=== PATIENT | female | born 1965 | race Caucasian/White ===

== ENCOUNTER 2021-11-09 17:44 | Inpatient (IN) ==
[2021-11-09] MEDS ORDERED: Isovue-370 500 ML BOTTLE IVP ONE (18:16)
[2021-11-09 18:30] LABS: Basophils % 0.1 %; Hemoglobin 15.6 g/dL (11.5-15.4); Mean Platelet Volume 12.4 fL (9.4-12.4); Nucleated Red Blood Cells 0.1 /100 WBC (0)
[2021-11-09 18:31] LABS: Eosinophils % 0.1 %; Hematocrit 42.6 % (35.3-44.9); Immature Granulocytes % 6.1 % (0-4); Lymphocytes # 2.3 K/mcL (0.6-4.6); Lymphocytes % 6.3 %; Mean Corpuscular HGB Conc 36.6 g/dL (31.6-35.5); Mean Corpuscular Hemoglobin 35.1 pg (28.0-33.3); Mean Corpuscular Volume 95.7 fL (83.0-100.0); Monocytes % 8.1 %; Neutrophils # 29.2 K/mcL (1.6-8.9); Platelet Count 329 K/mcL (140-400); Red Blood Count 4.45 M/mcL (3.82-4.97); Red Cell Distribution Width 14.3 % (11.5-14.5); Segmented Neutrophils % 79.3 %
[2021-11-09 18:34] LABS: White Blood Count 36.8 K/mcL (4.3-11.1)
[2021-11-09 18:39] LABS: INR 1.6; Prothrombin Time 17.5 Seconds (9.4-12.1)
[2021-11-09 18:41] LABS: Activated Partial Thrombo Time 37.4 Seconds (26.0-36.0)
[2021-11-09 18:49] LABS: Alanine Aminotransferase 43 Units/L (7-52); Albumin 3.2 g/dL (3.5-5.7); Alkaline Phosphatase 177 Units/L (34-104); Aspartate Amino Transferase 85 Units/L (13-39); BUN/Creatinine Ratio 39 (6-26); Bilirubin,Total 5.7 mg/dL (0.3-1.0); Blood Urea Nitrogen 76 mg/dL (6-20); Calcium 10.5 mg/dL (8.6-10.3); Carbon Dioxide 24 mEq/L (23-29); Chloride 86 mEq/L (98-107); Glucose 138 mg/dL (70-105); Osmolality,Calculated 285 (280-300); Potassium 2.8 mEq/L (3.5-5.1); Sodium 125 mEq/L (136-145); Total Protein 7.7 g/dL (6.4-8.9); eGFR For African Americans 33 (> 60); eGFR For Non-African Americans 27 (> 60)
[2021-11-09 18:50] LABS: Albumin/Globulin Ratio 0.7 (1.1-2.2); Ethanol < 10 mg/dL (Less than 10); Globulin 4.5 g/dL (2.4-3.5)
[2021-11-09 18:59] LABS: Platelet Estimate Normal (Normal); Smudge Cells Present (Not Present); Toxic Granulation Present (Not Present)
[2021-11-09] MEDS ORDERED: 0.9 % Sodium Chloride 1,000 ML IV ONE (19:17)
[2021-11-09] MEDS ORDERED: cefTRIAXone 1,000 MG in Water for inj. (sterile) 10 ML IVP ONE (19:32)
[2021-11-09] MEDS ORDERED: cefTRIAXone 1,000 MG in 0.9 % Sodium Chloride Mini Bag 100 ML IVPB ONE (20:00)
[2021-11-09] MEDS ORDERED: cefTRIAXone 1,000 MG in 0.9 % Sodium Chloride Mini Bag 100 ML IVP ONE (20:00)
[2021-11-09 20:08] LABS: Bacteria,Urine Few per hpf (None-Few); Bilirubin,Urine Small (Negative); Blood,Urine Large (Negative); Clarity,Urine Turbid (Clear); Color,Urine Dark-Yellow (Yellow); Glucose,Urine (UA) Normal (Normal); Hyaline Casts,Urine Many per lpf (None Seen); Ketones,Urine Negative (Negative); Leukocyte Esterase,Urine Negative (Negative); Mucus,Urine Few per lpf (None-Few); Nitrite,Urine Negative (Negative); PH,Urine 5.5 pH Units (5.0-8.0); Protein,Urine Trace mg/dL (Neg-Trace); RBC,Urine 0-3 per hpf (0-3); Specific Gravity,Urine > 1.030 (1.010-1.025); Squamous Epithelial Cell,Urine Moderate per hpf (None-Few); Urobilinogen,Urine >=8.0 mg/dL (Normal)
[2021-11-09 21:38] LABS: Lipase 185 Units/L (11-82)
[2021-11-09] MEDS ORDERED: MetroNIDAZOLE 500 MG/100 ML 500 MG/100 ML BAG IVPB ONE (21:38)
[2021-11-09] MEDS ORDERED: Piperacillin/Tazobactam 3.375 GM in 0.9 % Sodium Chloride Mini Bag 100 ML IVPB ONE (21:44)
[2021-11-09] MEDS ORDERED: 0.9 % Sodium Chloride 1,000 ML IVC ONE (21:50)
[2021-11-09] MEDS ORDERED: Melatonin 3 MG TABLET PO PRN (22:03)
[2021-11-09] MEDS ORDERED: Acetaminophen 325 MG TABLET PO PRN (22:03)
[2021-11-09] MEDS ORDERED: Naloxone 0.4 MG/ML INJ IVP PRN (22:03)
[2021-11-09] MEDS ORDERED: *HR* Promethazine 25 MG/ML VIAL IM PRN (22:03)
[2021-11-09] MEDS ORDERED: *HR* HYDROcodone/Acet 5/325 mg TABLET PO PRN (22:03)
[2021-11-09] MEDS ORDERED: Ondansetron 4 MG/2 ML VIAL IVP PRN (22:03)
[2021-11-09] MEDS: Ringers Solution, Lactated 1,000 ML IVC SCH (22:06)
[2021-11-09] MEDS ORDERED: Ringers Solution, Lactated 1,000 ML IVC ONE (22:11)
[2021-11-09 23:50] LABS: Influenza A PCR Negative (Negative); Influenza B PCR Negative (Negative); Resp. Syncytial Virus PCR Negative (Negative)
[2021-11-09 23:57] LABS: SARS-CoV-2 by PCR (In House) Positive (Negative)
[2021-11-10] MEDS: *HR* Heparin 5,000 UNIT/ML VIAL SQ SCH ×4 (00:04→20:42)
[2021-11-10] MEDS: Vancomycin 1,500 MG/265 ML IV.SOLN IVPB SCH ×2 (00:04→21:45)
[2021-11-10] MEDS ORDERED: *HR* LORazepam 2 MG/ML VIAL IVP PRN ×3 (00:07)
[2021-11-10] MEDS ORDERED: PrednisoLONE Oral Soln 15 MG/5 ML UDC PO ONE (00:09)
[2021-11-10 01:48] LABS: Basophils % 0.1 %; Mean Platelet Volume 12.2 fL (9.4-12.4); Nucleated Red Blood Cells 0.1 /100 WBC (0)
[2021-11-10 01:49] LABS: Eosinophils # 0.1 K/mcL (0.0-0.6); Eosinophils % 0.2 %; Hematocrit 37.3 % (35.3-44.9); Hemoglobin 13.5 g/dL (11.5-15.4); Immature Granulocytes % 6.1 % (0-4); Lymphocytes # 2.3 K/mcL (0.6-4.6); Lymphocytes % 7.7 %; Mean Corpuscular HGB Conc 36.2 g/dL (31.6-35.5); Mean Corpuscular Hemoglobin 34.9 pg (28.0-33.3); Mean Corpuscular Volume 96.4 fL (83.0-100.0); Monocytes # 2.7 K/mcL (0.0-1.3); Monocytes % 9.1 %; Neutrophils # 22.9 K/mcL (1.6-8.9); Platelet Count 266 K/mcL (140-400); Red Blood Count 3.87 M/mcL (3.82-4.97); Red Cell Distribution Width 14.6 % (11.5-14.5); Segmented Neutrophils % 76.8 %; White Blood Count 29.8 K/mcL (4.3-11.1)
[2021-11-10 01:58] LABS: Fibrinogen 426 mg/dL (169-393); INR 1.6; Prothrombin Time 17.8 Seconds (9.4-12.1)
[2021-11-10 02:08] LABS: C-Reactive Protein 195 mg/L (Less than 10); Lactate Dehydrogenase 331 Units/L (140-271); Potassium 3.4 mEq/L (3.5-5.1)
[2021-11-10 02:12] LABS: Albumin 2.7 g/dL (3.5-5.7); Albumin/Globulin Ratio 0.8 (1.1-2.2); Bilirubin,Total 4.4 mg/dL (0.3-1.0); Calcium 9.1 mg/dL (8.6-10.3); Globulin 3.6 g/dL (2.4-3.5); Potassium 3.5 mEq/L (3.5-5.1); Total Protein 6.3 g/dL (6.4-8.9)
[2021-11-10 02:13] LABS: D-Dimer 2250 ng/mLFEU (0-500)
[2021-11-10 03:13] LABS: Platelet Estimate Normal (Normal); Toxic Granulation Present (Not Present)
[2021-11-10] MEDS: Ringers Solution, Lactated 1,000 ML IVC SCH ×3 (05:09→20:41)
[2021-11-10] MEDS: Dexamethasone Sodium Phos/PF 10 MG/ML VIAL IVP SCH (08:11)
[2021-11-10] MEDS: Piperacillin/Tazobactam 3.375 GM in 0.9 % Sodium Chloride Mini Bag 100 ML IVPB SCH ×3 (08:12→23:30)
[2021-11-10] MEDS ORDERED: *HR* FentaNYL (PF) 100 MCG/2 ML VIAL ONE (13:51)
[2021-11-10] MEDS ORDERED: Ondansetron 4 MG/2 ML VIAL ONE (13:51)
[2021-11-10] MEDS ORDERED: *HR* Rocuronium Bromide 50 MG/5 ML VIAL ONE (13:51)
[2021-11-10] MEDS ORDERED: *HR* Succinylcholine 200 MG/10 ML VIAL IVP ONE (13:51)
[2021-11-10] MEDS ORDERED: *HR* Propofol 200 MG/20 ML VIAL IVP ONE (13:51)
[2021-11-10] MEDS ORDERED: Lidocaine -MPF 2% 5 ML VIAL ONE (15:45)
[2021-11-10] MEDS ORDERED: Albuterol 2.5 MG/3 ML NEBULIZER ONE (16:23)
[2021-11-10] MEDS ORDERED: Albuterol 2.5 MG/3 ML NEBULIZER IH ONE (16:28)
[2021-11-10 17:04] LABS: Appearance of Pleural Fl Cloudy (Clear)
[2021-11-10 17:09] LABS: RBC,Pleural Fluid 2000 RBC/mcL
[2021-11-10 18:24] LABS: Basophils,Pleural Fluid 0 %; Eosinophils,Pleural Fluid 0 %
[2021-11-10 18:31] LABS: LDH,Pleural Fluid > 1200 Units/L (No Ref Range); Total Protein,Pleural Fluid 5.4 g/dL
[2021-11-10 21:45] LABS: Protein/Creatinine Ratio,Urine 0.29 mg/mg (0.00-0.20); Sodium, Urine 22.7 mEq/L
[2021-11-10] MEDS: 0.9 % Sodium Chloride 1,000 ML IVC SCH (23:30)
[2021-11-11 03:31] LABS: Hemoglobin 13.1 g/dL (11.5-15.4); Mean Corpuscular HGB Conc 35.4 g/dL (31.6-35.5); Mean Corpuscular Hemoglobin 35.2 pg (28.0-33.3); Mean Corpuscular Volume 99.5 fL (83.0-100.0); Platelet Count 216 K/mcL (140-400); Red Blood Count 3.72 M/mcL (3.82-4.97); Red Cell Distribution Width 15.4 % (11.5-14.5); White Blood Count 21.7 K/mcL (4.3-11.1)
[2021-11-11 03:57] LABS: Alanine Aminotransferase 32 Units/L (7-52); Albumin 2.6 g/dL (3.5-5.7); Albumin/Globulin Ratio 0.7 (1.1-2.2); Alkaline Phosphatase 226 Units/L (34-104); Aspartate Amino Transferase 73 Units/L (13-39); BUN/Creatinine Ratio 61 (6-26); Bilirubin,Total 3.7 mg/dL (0.3-1.0); Blood Urea Nitrogen 47 mg/dL (6-20); Calcium 9.5 mg/dL (8.6-10.3); Carbon Dioxide 20 mEq/L (23-29); Chloride 104 mEq/L (98-107); Globulin 3.6 g/dL (2.4-3.5); Glucose 165 mg/dL (70-105); Magnesium 2.1 mg/dL (1.6-2.6); Osmolality,Calculated 292 (280-300); Potassium 3.5 mEq/L (3.5-5.1); Sodium 133 mEq/L (136-145); Total Protein 6.2 g/dL (6.4-8.9); eGFR For African Americans > 60 (> 60); eGFR For Non-African Americans > 60 (> 60)
[2021-11-11 04:07] LABS: Lymphocytes # 0.4 K/mcL (0.6-4.6); Monocytes # 1.3 K/mcL (0.0-1.3); Platelet Estimate Normal (Normal)
[2021-11-11] MEDS: *HR* Heparin 5,000 UNIT/ML VIAL SQ SCH ×3 (05:47→21:02)
[2021-11-11] MEDS: Piperacillin/Tazobactam 3.375 GM in 0.9 % Sodium Chloride Mini Bag 100 ML IVPB SCH ×3 (08:41→23:34)
[2021-11-11] MEDS: 0.9 % Sodium Chloride 1,000 ML IVC SCH ×2 (08:42→12:23)
[2021-11-11] MEDS: Dexamethasone Sodium Phos/PF 10 MG/ML VIAL IVP SCH (08:42)
[2021-11-11] MEDS: Vancomycin 1,500 MG/265 ML IV.SOLN IVPB SCH (23:35)
[2021-11-12] MEDS: *HR* Heparin 5,000 UNIT/ML VIAL SQ SCH (05:51)
[2021-11-12] MEDS ORDERED: Ondansetron 4 MG/2 ML VIAL IVP PRN ×2 (07:44→16:02)
[2021-11-12] MEDS: Piperacillin/Tazobactam 3.375 GM in 0.9 % Sodium Chloride Mini Bag 100 ML IVPB SCH ×2 (08:34→15:59)
[2021-11-12] MEDS: Dexamethasone Sodium Phos/PF 10 MG/ML VIAL IVP SCH (08:38)
[2021-11-12 10:32] LABS: Hemoglobin 14.6 g/dL (11.5-15.4); Mean Corpuscular Hemoglobin 34.9 pg (28.0-33.3); Red Blood Count 4.18 M/mcL (3.82-4.97); Red Cell Distribution Width 15.9 % (11.5-14.5)
[2021-11-12 10:34] LABS: Hematocrit 42.3 % (35.3-44.9); Mean Corpuscular HGB Conc 34.5 g/dL (31.6-35.5); Mean Corpuscular Volume 101.2 fL (83.0-100.0); Mean Platelet Volume 11.5 fL (9.4-12.4); Platelet Count 243 K/mcL (140-400)
[2021-11-12 10:53] LABS: Alanine Aminotransferase 39 Units/L (7-52); Albumin 2.9 g/dL (3.5-5.7); Albumin/Globulin Ratio 0.7 (1.1-2.2); Alkaline Phosphatase 202 Units/L (34-104); Aspartate Amino Transferase 83 Units/L (13-39); Bilirubin,Direct 2.3 mg/dL (0.0-0.2); Bilirubin,Indirect 1.8 mg/dL (0.0-1.0); Bilirubin,Total 4.1 mg/dL (0.3-1.0); Blood Urea Nitrogen 36 mg/dL (6-20); Calcium 8.4 mg/dL (8.6-10.3); Carbon Dioxide 25 mEq/L (23-29); Chloride 106 mEq/L (98-107); Glucose 142 mg/dL (70-105); Osmolality,Calculated 299 (280-300); Potassium 3.4 mEq/L (3.5-5.1); Sodium 139 mEq/L (136-145); Total Protein 6.9 g/dL (6.4-8.9)
[2021-11-12] MEDS ORDERED: Vancomycin 1,250 MG/262.5 ML IV.SOLN IVPB SCH ×2 (11:00→23:00)
[2021-11-12 11:10] LABS: Platelet Estimate Normal (Normal)
[2021-11-12] MEDS ORDERED: *HR* Rocuronium Bromide 50 MG/5 ML VIAL ONE (11:22)
[2021-11-12] MEDS ORDERED: Lidocaine -MPF 2% 5 ML VIAL ONE (11:22)
[2021-11-12] MEDS ORDERED: *HR* Midazolam HCl 2 MG/2 ML VIAL ONE (11:22)
[2021-11-12] MEDS ORDERED: *HR* Succinylcholine 200 MG/10 ML VIAL IVP ONE (11:22)
[2021-11-12] MEDS ORDERED: *HR* FentaNYL (PF) 100 MCG/2 ML VIAL ONE ×2 (11:22→13:34)
[2021-11-12] MEDS ORDERED: Lidocaine HCL 4 ML Topical Solution (Laryng-O-Jet Kit Sterile Pak) TP ONE (11:22)
[2021-11-12] MEDS ORDERED: Ondansetron 4 MG/2 ML VIAL ONE (11:22)
[2021-11-12] MEDS ORDERED: *HR* Propofol 200 MG/20 ML VIAL IVP ONE (11:23)
[2021-11-12] MEDS ORDERED: *HR* Norepinephrine 4 MG/4 ML VIAL IVC ONE (11:33)
[2021-11-12] MEDS ORDERED: Albumin Human 5% 25.0 GM/500 ML IV.SOLN ONE (11:33)
[2021-11-12] MEDS ORDERED: *HR* Vasopressin 20 UNIT/ML VIAL ONE (11:33)
[2021-11-12 11:37] LABS: BUN/Creatinine Ratio 59 (6-26); eGFR For African Americans > 60 (> 60); eGFR For Non-African Americans > 60 (> 60)
[2021-11-12] MEDS: 0.9 % Sodium Chloride 1,000 ML IVC SCH (14:57)
[2021-11-12 14:59] LABS: ABG Base Excess -5 mEq/L (-2 to 3); ABG HCO3 24 mEq/L (21-27); ABG Oxygen Saturation 95 % (95-98); ABG PCO2 54 mmHg (35-45); ABG PH 7.25 pH Units (7.32-7.45); ABG PO2 92 mmHg (85-104); ABG TCO2 25 mEq/L (20-26)
[2021-11-12] MEDS ORDERED: Morphine Sulfate 2 MG/ML SYRINGE IVP ONE (15:37)
[2021-11-12] MEDS ORDERED: Melatonin 3 MG TABLET PO PRN (16:02)
[2021-11-12] MEDS ORDERED: Naloxone 0.4 MG/ML INJ IVP PRN (16:02)
[2021-11-12] MEDS ORDERED: *HR* HYDROcodone/Acet 5/325 mg TABLET PO PRN (16:02)
[2021-11-12] MEDS ORDERED: 0.9 % Sodium Chloride 1,000 ML IVC SCH (16:02)
[2021-11-12] MEDS ORDERED: *HR* LORazepam 2 MG/ML VIAL IVP PRN ×2 (16:02)
[2021-11-12] MEDS ORDERED: Artificial Tears SOLN 15 ML BOTTLE BOTH EYES PRN (16:19)
[2021-11-12] MEDS ORDERED: FentaNYL (PF) 1,000 MCG/100 ML IV.SOLN IVC SCH (16:30)
[2021-11-12] MEDS ORDERED: Norepinephrine 4 MG/254 ML IV.SOLN IVC SCH (16:30)
[2021-11-12] MEDS ORDERED: Furosemide 40 MG/4 ML VIAL ONE (17:06)
[2021-11-12 17:17] LABS: ABG Base Excess -3 mEq/L (-2 to 3); ABG Chloride 113 mEq/L (98-107); ABG Glucose 174 mg/dL (60-95); ABG HCO3 23 mEq/L (21-27); ABG Ionized Calcium 1.07 mmol/L (1.15-1.35); ABG Oxygen Saturation 98 % (95-98); ABG PCO2 39 mmHg (35-45); ABG PH 7.37 pH Units (7.32-7.45); ABG PO2 100 mmHg (85-104); ABG TCO2 24 mEq/L (20-26); Blood Gas Modality BiLevel
[2021-11-12] MEDS: Dexmedetomidine HCl 400 MCG/100 ML MLS IVC SCH ×2 (17:20→23:33)
[2021-11-12 18:34] LABS: Fluid Source for Albumin PLEURAL FLUID
[2021-11-12] MEDS: Gabapentin 300 MG CAPSULE PO SCH ×2 (18:50→20:19)
[2021-11-12] MEDS: Artificial Tears SOLN 15 ML BOTTLE BOTH EYES SCH (20:01)
[2021-11-12] MEDS: Chlorhexidine Rinse 15 ML MOUTHWASH MM SCH (20:18)
[2021-11-12] MEDS: Sennosides/Docusate Sodium TABLET PO SCH (20:18)
[2021-11-12] MEDS: Morphine Sulfate 2 MG/ML SYRINGE IVP PRN (20:35)
[2021-11-12 20:40] LABS: Fluid Source for Triglycerides PLEURAL FLUID
[2021-11-12] MEDS ORDERED: Latanoprost 2.5 ML BOTTLE BOTH EYES SCH (21:00)
[2021-11-12 21:22] LABS: Fluid Source for Bilirubin PLEURAL FLUID
[2021-11-12] MEDS: Latanoprost 2.5 ML BOTTLE BOTH EYES SCH (21:43)
[2021-11-12] MEDS ORDERED: Furosemide 40 MG/4 ML VIAL IVP ONE (22:42)
[2021-11-12] MEDS: *HR* LORazepam 2 MG/ML VIAL IVP PRN (23:00)
[2021-11-13] MEDS ORDERED: Acetaminophen IV 500 MG/50 ML BAG IVPB ONE (00:03)
[2021-11-13] MEDS: Artificial Tears SOLN 15 ML BOTTLE BOTH EYES SCH ×7 (00:05→23:07)
[2021-11-13] MEDS: Piperacillin/Tazobactam 3.375 GM in 0.9 % Sodium Chloride Mini Bag 100 ML IVPB SCH ×4 (00:06→23:06)
[2021-11-13] MEDS: Morphine Sulfate 2 MG/ML SYRINGE IVP PRN (00:30)
[2021-11-13 03:43] LABS: Basophils # 0.2 K/mcL (0.0-0.2); Basophils % 0.7 %; Immature Granulocytes % 4.1 % (0-4); Lymphocytes # 0.6 K/mcL (0.6-4.6); Lymphocytes % 2.9 %; Mean Corpuscular HGB Conc 33.5 g/dL (31.6-35.5); Mean Corpuscular Hemoglobin 34.6 pg (28.0-33.3); Mean Corpuscular Volume 103.4 fL (83.0-100.0); Mean Platelet Volume 11.4 fL (9.4-12.4); Monocytes # 1.1 K/mcL (0.0-1.3); Monocytes % 5.6 %; Neutrophils # 17.4 K/mcL (1.6-8.9); Platelet Count 159 K/mcL (140-400); Red Blood Count 3.58 M/mcL (3.82-4.97); Red Cell Distribution Width 16.3 % (11.5-14.5); Segmented Neutrophils % 86.7 %; White Blood Count 20.1 K/mcL (4.3-11.1)
[2021-11-13 03:44] LABS: Hemoglobin 12.4 g/dL (11.5-15.4)
[2021-11-13 04:05] LABS: BUN/Creatinine Ratio 48 (6-26); Blood Urea Nitrogen 45 mg/dL (6-20); Calcium 6.7 mg/dL (8.6-10.3); Carbon Dioxide 22 mEq/L (23-29); Chloride 112 mEq/L (98-107); Glucose 182 mg/dL (70-105); Osmolality,Calculated 312 (280-300); Potassium 4.2 mEq/L (3.5-5.1); Sodium 143 mEq/L (136-145); eGFR For African Americans > 60 (> 60); eGFR For Non-African Americans > 60 (> 60)
[2021-11-13 04:06] LABS: ABG Base Excess -2 mEq/L (-2 to 3); ABG HCO3 22 mEq/L (21-27); ABG Oxygen Saturation 93 % (95-98); ABG PCO2 38 mmHg (35-45); ABG PH 7.38 pH Units (7.32-7.45); ABG PO2 68 mmHg (85-104); ABG TCO2 24 mEq/L (20-26); Blood Gas Modality NIV; Blood Gas VT 500 cc
[2021-11-13] MEDS ORDERED: Furosemide 40 MG/4 ML VIAL IVP ONE (08:24)
[2021-11-13] MEDS: Dexmedetomidine HCl 400 MCG/100 ML MLS IVC SCH ×2 (08:25→22:08)
[2021-11-13] MEDS: Chlorhexidine Rinse 15 ML MOUTHWASH MM SCH ×2 (08:33→19:29)
[2021-11-13] MEDS: Pantoprazole 40 MG VIAL IVP SCH (08:34)
[2021-11-13] MEDS: Dexamethasone Sodium Phos/PF 10 MG/ML VIAL IVP SCH (08:35)
[2021-11-13 09:33] LABS: Triglycerides,Body Fluid 110 mg/dL
[2021-11-13 10:19] LABS: Magnesium 1.8 mg/dL (1.6-2.6); Phosphorous 3.4 mg/dL (2.7-4.5); Triglycerides 95 mg/dL (< 150)
[2021-11-13] MEDS: Gabapentin 300 MG CAPSULE PO SCH ×3 (12:02→19:45)
[2021-11-13] MEDS: Sennosides/Docusate Sodium TABLET PO SCH ×2 (12:02→19:45)
[2021-11-13] MEDS ORDERED: Lidocaine -MPF 1% 5 ML AMPUL INFILT ONE (13:53)
[2021-11-13] MEDS: *HR* Heparin 5,000 UNIT/ML VIAL SQ SCH (17:52)
[2021-11-13] MEDS: Latanoprost 2.5 ML BOTTLE BOTH EYES SCH (19:46)
[2021-11-13 21:04] LABS: VBG Ionized Calcium 0.79 mmol/L (1.15-1.35)
[2021-11-13 21:22] LABS: Calcium 6.1 mg/dL (8.6-10.3); Potassium 4.2 mEq/L (3.5-5.1)
[2021-11-13] MEDS: Calcium Gluconate 1gm/50mL 1 GM/50 ML BAG IVPB SCH ×2 (22:26→23:05)
[2021-11-14] MEDS: Morphine Sulfate 2 MG/ML SYRINGE IVP PRN ×3 (00:25→17:09)
[2021-11-14] MEDS: Artificial Tears SOLN 15 ML BOTTLE BOTH EYES SCH ×6 (03:24→23:07)
[2021-11-14 03:58] LABS: ABG Base Excess -2 mEq/L (-2 to 3); ABG HCO3 21 mEq/L (21-27); ABG Oxygen Saturation 91 % (95-98); ABG PCO2 32 mmHg (35-45); ABG PH 7.43 pH Units (7.32-7.45); ABG PO2 58 mmHg (85-104); ABG TCO2 22 mEq/L (20-26); Blood Gas VT 500 cc
[2021-11-14 04:03] LABS: Basophils # 0.1 K/mcL (0.0-0.2); Basophils % 0.4 %; Hematocrit 36.6 % (35.3-44.9); Hemoglobin 12.5 g/dL (11.5-15.4); Immature Granulocytes % 2.8 % (0-4); Lymphocytes # 0.9 K/mcL (0.6-4.6); Lymphocytes % 4.1 %; Mean Corpuscular HGB Conc 34.2 g/dL (31.6-35.5); Mean Corpuscular Hemoglobin 35.3 pg (28.0-33.3); Mean Corpuscular Volume 103.4 fL (83.0-100.0); Mean Platelet Volume 12.2 fL (9.4-12.4); Monocytes % 4.8 %; Neutrophils # 18.8 K/mcL (1.6-8.9); Platelet Count 138 K/mcL (140-400); Red Blood Count 3.54 M/mcL (3.82-4.97); Red Cell Distribution Width 16.8 % (11.5-14.5); Segmented Neutrophils % 87.9 %; White Blood Count 21.4 K/mcL (4.3-11.1)
[2021-11-14 04:07] LABS: VBG Ionized Calcium 0.89 mmol/L (1.15-1.35)
[2021-11-14 04:10] LABS: Albumin 2.5 g/dL (3.5-5.7); Albumin/Globulin Ratio 0.7 (1.1-2.2); Bilirubin,Direct 1.3 mg/dL (0.0-0.2); Bilirubin,Total 2.3 mg/dL (0.3-1.0); Calcium 6.4 mg/dL (8.6-10.3); Globulin 3.4 g/dL (2.4-3.5); Phosphorous 3.5 mg/dL (2.7-4.5); Potassium 4.5 mEq/L (3.5-5.1); Total Protein 5.9 g/dL (6.4-8.9)
[2021-11-14] MEDS ORDERED: Calcium Gluconate 1gm/50mL 1 GM/50 ML BAG IVPB ONE (04:43)
[2021-11-14] MEDS: Calcium Gluconate 1gm/50mL 1 GM/50 ML BAG IVPB SCH ×2 (04:54→05:56)
[2021-11-14] MEDS: *HR* Heparin 5,000 UNIT/ML VIAL SQ SCH ×2 (04:58→17:08)
[2021-11-14] MEDS: Sennosides/Docusate Sodium TABLET PO SCH ×3 (07:40→19:43)
[2021-11-14] MEDS: Gabapentin 300 MG CAPSULE PO SCH ×4 (07:40→19:43)
[2021-11-14] MEDS: Dexmedetomidine HCl 400 MCG/100 ML MLS IVC SCH ×3 (08:02→23:07)
[2021-11-14] MEDS: Chlorhexidine Rinse 15 ML MOUTHWASH MM SCH ×2 (08:03→19:25)
[2021-11-14] MEDS: Pantoprazole 40 MG VIAL IVP SCH (08:03)
[2021-11-14] MEDS: Dexamethasone Sodium Phos/PF 10 MG/ML VIAL IVP SCH (08:03)
[2021-11-14] MEDS: Piperacillin/Tazobactam 3.375 GM in 0.9 % Sodium Chloride Mini Bag 100 ML IVPB SCH ×3 (08:04→23:07)
[2021-11-14 12:53] LABS: VBG Ionized Calcium 0.94 mmol/L (1.15-1.35)
[2021-11-14 13:05] LABS: Calcium 6.8 mg/dL (8.6-10.3); Potassium 4.5 mEq/L (3.5-5.1)
[2021-11-14 14:37] LABS: Magnesium 2.2 mg/dL (1.6-2.6); Phosphorous 3.4 mg/dL (2.7-4.5)
[2021-11-14] MEDS: Latanoprost 2.5 ML BOTTLE BOTH EYES SCH (19:26)
[2021-11-15] MEDS: Morphine Sulfate 2 MG/ML SYRINGE IVP PRN (02:54)
[2021-11-15] MEDS: Artificial Tears SOLN 15 ML BOTTLE BOTH EYES SCH ×5 (03:03→19:55)
[2021-11-15 04:01] LABS: VBG Ionized Calcium 0.98 mmol/L (1.15-1.35)
[2021-11-15 04:05] LABS: Mean Corpuscular Volume 104.7 fL (83.0-100.0); Red Cell Distribution Width 17.1 % (11.5-14.5)
[2021-11-15 04:06] LABS: Hemoglobin 12.6 g/dL (11.5-15.4); Immature Platelets 8.8 % (1.1-6.1); Mean Corpuscular HGB Conc 33.2 g/dL (31.6-35.5); Mean Corpuscular Hemoglobin 34.7 pg (28.0-33.3); Mean Platelet Volume 11.8 fL (9.4-12.4); Platelet Count 117 K/mcL (140-400); Red Blood Count 3.63 M/mcL (3.82-4.97); White Blood Count 18.5 K/mcL (4.3-11.1)
[2021-11-15] MEDS: Dexmedetomidine HCl 400 MCG/100 ML MLS IVC SCH ×5 (04:12→22:08)
[2021-11-15 04:17] LABS: Albumin 2.4 g/dL (3.5-5.7); Albumin/Globulin Ratio 0.7 (1.1-2.2); Bilirubin,Direct 1.1 mg/dL (0.0-0.2); Bilirubin,Indirect 0.8 mg/dL (0.0-1.0); Bilirubin,Total 1.9 mg/dL (0.3-1.0); Calcium 6.9 mg/dL (8.6-10.3); Globulin 3.6 g/dL (2.4-3.5); Magnesium 2.3 mg/dL (1.6-2.6); Phosphorous 4.2 mg/dL (2.7-4.5); Potassium 4.9 mEq/L (3.5-5.1)
[2021-11-15 04:43] LABS: Folate 7.7 ng/mL (3.0-16.0)
[2021-11-15] MEDS: *HR* Heparin 5,000 UNIT/ML VIAL SQ SCH ×2 (05:01→17:41)
[2021-11-15 06:15] LABS: Lymphocytes # 1.3 K/mcL (0.6-4.6); Monocytes # 0.4 K/mcL (0.0-1.3); Neutrophils # 16.8 K/mcL (1.6-8.9); Toxic Granulation Present (Not Present)
[2021-11-15] MEDS: Chlorhexidine Rinse 15 ML MOUTHWASH MM SCH ×2 (08:10→19:55)
[2021-11-15] MEDS: Dexamethasone Sodium Phos/PF 10 MG/ML VIAL IVP SCH (08:10)
[2021-11-15] MEDS: Gabapentin 300 MG CAPSULE PO SCH ×3 (08:11→19:55)
[2021-11-15] MEDS: Piperacillin/Tazobactam 3.375 GM in 0.9 % Sodium Chloride Mini Bag 100 ML IVPB SCH ×2 (08:11→17:40)
[2021-11-15] MEDS: Pantoprazole 40 MG VIAL IVP SCH (08:11)
[2021-11-15] MEDS: Sennosides/Docusate Sodium TABLET PO SCH ×2 (08:12→19:55)
[2021-11-15 08:30] LABS: Platelet Estimate Slight Decrease (Normal)
[2021-11-15] MEDS: Latanoprost 2.5 ML BOTTLE BOTH EYES SCH (19:55)
[2021-11-15] MEDS: *HR* LORazepam 2 MG/ML VIAL IVP PRN (22:30)
[2021-11-16] MEDS: Piperacillin/Tazobactam 3.375 GM in 0.9 % Sodium Chloride Mini Bag 100 ML IVPB SCH ×3 (00:18→14:58)
[2021-11-16] MEDS: Artificial Tears SOLN 15 ML BOTTLE BOTH EYES SCH ×6 (00:19→19:40)
[2021-11-16] MEDS: Dexmedetomidine HCl 400 MCG/100 ML MLS IVC SCH ×4 (02:48→19:41)
[2021-11-16 04:14] LABS: VBG Ionized Calcium 1.13 mmol/L (1.15-1.35)
[2021-11-16 04:16] LABS: Hemoglobin 13.1 g/dL (11.5-15.4)
[2021-11-16 04:18] LABS: Basophils # 0.1 K/mcL (0.0-0.2); Basophils % 0.3 %; Hematocrit 40.4 % (35.3-44.9); Immature Granulocytes % 1.3 % (0-4); Immature Platelets 10.3 % (1.1-6.1); Lymphocytes # 0.8 K/mcL (0.6-4.6); Mean Corpuscular HGB Conc 32.4 g/dL (31.6-35.5); Mean Corpuscular Hemoglobin 34.3 pg (28.0-33.3); Mean Corpuscular Volume 105.8 fL (83.0-100.0); Mean Platelet Volume 11.6 fL (9.4-12.4); Monocytes # 0.6 K/mcL (0.0-1.3); Monocytes % 3.6 %; Platelet Count 101 K/mcL (140-400); Red Blood Count 3.82 M/mcL (3.82-4.97); Red Cell Distribution Width 17.2 % (11.5-14.5); Segmented Neutrophils % 89.8 %
[2021-11-16 04:19] LABS: Neutrophils # 14.4 K/mcL (1.6-8.9)
[2021-11-16] MEDS: *HR* Heparin 5,000 UNIT/ML VIAL SQ SCH ×2 (04:20→16:38)
[2021-11-16 04:36] LABS: INR 1.3; Prothrombin Time 14.9 Seconds (9.4-12.1)
[2021-11-16 04:42] LABS: Albumin 2.5 g/dL (3.5-5.7); Albumin/Globulin Ratio 0.7 (1.1-2.2); Bilirubin,Direct 0.9 mg/dL (0.0-0.2); Bilirubin,Indirect 0.9 mg/dL (0.0-1.0); Bilirubin,Total 1.8 mg/dL (0.3-1.0); Globulin 3.8 g/dL (2.4-3.5); Magnesium 2.9 mg/dL (1.6-2.6); Phosphorous 4.9 mg/dL (2.7-4.5); Potassium 5.6 mEq/L (3.5-5.1); Total Protein 6.3 g/dL (6.4-8.9)
[2021-11-16 04:43] LABS: Large Platelets Present (Not Present); Platelet Estimate Decreased (Normal)
[2021-11-16] MEDS: Pantoprazole 40 MG VIAL IVP SCH (08:00)
[2021-11-16] MEDS: Chlorhexidine Rinse 15 ML MOUTHWASH MM SCH ×2 (08:00→19:40)
[2021-11-16] MEDS: Dexamethasone Sodium Phos/PF 10 MG/ML VIAL IVP SCH (08:04)
[2021-11-16] MEDS: Gabapentin 300 MG CAPSULE PO SCH (08:05)
[2021-11-16] MEDS: Sennosides/Docusate Sodium TABLET PO SCH ×2 (08:05→19:40)
[2021-11-16] MEDS: D5% in Water 1,000 ML IVC SCH ×2 (09:30→22:14)
[2021-11-16] MEDS ORDERED: *HR* LORazepam 2 MG/ML VIAL IVP PRN (12:03)
[2021-11-16] MEDS ORDERED: D10% in Water 500 ML IVC PRN (12:15)
[2021-11-16] MEDS ORDERED: Clinimix 5%-20% SOLUTION 2,000 ML with MVI, adult with vitamin K 10 ML, Sodium Phosph... IVC SCH (17:00)
[2021-11-16] MEDS: Morphine Sulfate 2 MG/ML SYRINGE IVP PRN (17:11)
[2021-11-16] MEDS: Latanoprost 2.5 ML BOTTLE BOTH EYES SCH (19:40)
[2021-11-17] MEDS: Dexmedetomidine HCl 400 MCG/100 ML MLS IVC SCH ×4 (00:26→14:40)
[2021-11-17] MEDS: Artificial Tears SOLN 15 ML BOTTLE BOTH EYES SCH ×6 (00:27→20:11)
[2021-11-17] MEDS: Piperacillin/Tazobactam 3.375 GM in 0.9 % Sodium Chloride Mini Bag 100 ML IVPB SCH ×3 (00:27→16:07)
[2021-11-17 03:54] LABS: Basophils % 0.3 %; Immature Granulocytes % 0.9 % (0-4)
[2021-11-17 03:56] LABS: Basophils # 0.1 K/mcL (0.0-0.2); Eosinophils % 0.2 %; Hematocrit 41.3 % (35.3-44.9); Hemoglobin 13.4 g/dL (11.5-15.4); Immature Platelets 11.3 % (1.1-6.1); Lymphocytes # 0.9 K/mcL (0.6-4.6); Lymphocytes % 4.9 %; Mean Corpuscular HGB Conc 32.4 g/dL (31.6-35.5); Mean Corpuscular Hemoglobin 34.7 pg (28.0-33.3); Mean Platelet Volume 12.5 fL (9.4-12.4); Monocytes # 0.6 K/mcL (0.0-1.3); Monocytes % 3.3 %; Neutrophils # 16.2 K/mcL (1.6-8.9); Platelet Count 85 K/mcL (140-400); Red Blood Count 3.86 M/mcL (3.82-4.97); Red Cell Distribution Width 16.7 % (11.5-14.5); Segmented Neutrophils % 90.4 %; White Blood Count 17.9 K/mcL (4.3-11.1)
[2021-11-17 04:10] LABS: VBG Ionized Calcium 1.23 mmol/L (1.15-1.35)
[2021-11-17 04:11] LABS: Albumin 2.5 g/dL (3.5-5.7); Albumin/Globulin Ratio 0.6 (1.1-2.2); Bilirubin,Direct 0.8 mg/dL (0.0-0.2); Bilirubin,Indirect 0.9 mg/dL (0.0-1.0); Bilirubin,Total 1.7 mg/dL (0.3-1.0); Calcium 8.7 mg/dL (8.6-10.3); Globulin 3.9 g/dL (2.4-3.5); Magnesium 2.7 mg/dL (1.6-2.6); Phosphorous 4.7 mg/dL (2.7-4.5); Potassium 5.2 mEq/L (3.5-5.1); Total Protein 6.4 g/dL (6.4-8.9)
[2021-11-17] MEDS: *HR* Heparin 5,000 UNIT/ML VIAL SQ SCH ×2 (04:33→17:20)
[2021-11-17] MEDS: Pantoprazole 40 MG VIAL IVP SCH (08:46)
[2021-11-17] MEDS: Chlorhexidine Rinse 15 ML MOUTHWASH MM SCH ×2 (08:47→20:11)
[2021-11-17] MEDS: Dexamethasone Sodium Phos/PF 10 MG/ML VIAL IVP SCH (08:47)
[2021-11-17] MEDS: Sennosides/Docusate Sodium TABLET PO SCH ×2 (08:48→20:11)
[2021-11-17] MEDS ORDERED: Dextrose Gel 15 GM/37.5 ML TUBE PO PRN ×2 (10:25)
[2021-11-17] MEDS ORDERED: D5% in Water 1,000 ML IVC PRN (10:25)
[2021-11-17 10:39] LABS: ABG Base Excess -4 mEq/L (-2 to 3); ABG HCO3 17 mEq/L (21-27); ABG Oxygen Saturation 86 % (95-98); ABG PCO2 23 mmHg (35-45); ABG PH 7.48 pH Units (7.32-7.45); ABG PO2 46 mmHg (85-104); ABG TCO2 18 mEq/L (20-26)
[2021-11-17] MEDS: D5% in Water 1,000 ML IVC SCH (11:45)
[2021-11-17] MEDS: Insulin LISPRO 300 UNITS/3 ML VIAL SUBQ SCH ×3 (12:41→20:41)
[2021-11-17] MEDS ORDERED: Artificial Tears SOLN 15 ML BOTTLE BOTH EYES PRN (13:17)
[2021-11-17] MEDS: FentaNYL (PF) 1,000 MCG/100 ML IV.SOLN IVC SCH ×2 (13:41→21:23)
[2021-11-17] MEDS ORDERED: Artificial Tears SOLN 15 ML BOTTLE BOTH EYES SCH (16:00)
[2021-11-17] MEDS ORDERED: *HR* Etomidate 20 MG/10 ML AMPUL IVP ONE (16:05)
[2021-11-17] MEDS ORDERED: *HR* Midazolam HCl 5 MG/5 ML VIAL IVP ONE (16:05)
[2021-11-17] MEDS ORDERED: Clinimix 5%-20% SOLUTION 2,000 ML with MVI, adult with vitamin K 10 ML, Sodium Phosph... IVC SCH (17:00)
[2021-11-17] MEDS ORDERED: Clinimix 5%-20% SOLUTION 2,000 ML, Parenteral Amino Acid 10% 0 ML with MVI, adult with... IVC SCH (17:00)
[2021-11-17] MEDS ORDERED: Fat Emulsion 250 ML IVPB SCH (17:00)
[2021-11-17 17:05] LABS: ABG Base Excess -7 mEq/L (-2 to 3); ABG HCO3 20 mEq/L (21-27); ABG Oxygen Saturation 98 % (95-98); ABG PCO2 41 mmHg (35-45); ABG PH 7.28 pH Units (7.32-7.45); ABG PO2 113 mmHg (85-104); ABG TCO2 21 mEq/L (20-26); Blood Gas VT 420 cc
[2021-11-17] MEDS: Latanoprost 2.5 ML BOTTLE BOTH EYES SCH (20:13)
[2021-11-17] MEDS ORDERED: Chlorhexidine Rinse 15 ML MOUTHWASH MM SCH (21:00)
[2021-11-18] MEDS: Insulin LISPRO 300 UNITS/3 ML VIAL SUBQ SCH ×6 (00:07→21:43)
[2021-11-18] MEDS: Artificial Tears SOLN 15 ML BOTTLE BOTH EYES SCH ×6 (00:07→21:01)
[2021-11-18] MEDS: Piperacillin/Tazobactam 3.375 GM in 0.9 % Sodium Chloride Mini Bag 100 ML IVPB SCH ×3 (00:11→15:06)
[2021-11-18] MEDS: D5% in Water 1,000 ML IVC SCH ×2 (01:37→14:11)
[2021-11-18 04:17] LABS: Basophils % 0.3 %; Immature Granulocytes % 0.9 % (0-4)
[2021-11-18 04:19] LABS: Basophils # 0.1 K/mcL (0.0-0.2); Eosinophils % 0.1 %; Hematocrit 38.1 % (35.3-44.9); Hemoglobin 11.8 g/dL (11.5-15.4); Lymphocytes # 0.8 K/mcL (0.6-4.6); Lymphocytes % 3.6 %; Mean Corpuscular Volume 109.8 fL (83.0-100.0); Monocytes # 0.9 K/mcL (0.0-1.3); Monocytes % 4.1 %; Red Blood Count 3.47 M/mcL (3.82-4.97); Red Cell Distribution Width 16.6 % (11.5-14.5); White Blood Count 22.4 K/mcL (4.3-11.1)
[2021-11-18 04:20] LABS: Neutrophils # 20.4 K/mcL (1.6-8.9); Platelet Count 67 K/mcL (140-400)
[2021-11-18 04:34] LABS: VBG Ionized Calcium 1.31 mmol/L (1.15-1.35)
[2021-11-18 04:34] LABS: Albumin 2.3 g/dL (3.5-5.7); Albumin/Globulin Ratio 0.7 (1.1-2.2); Bilirubin,Indirect 0.6 mg/dL (0.0-1.0); Bilirubin,Total 1.6 mg/dL (0.3-1.0); Calcium 8.9 mg/dL (8.6-10.3); Globulin 3.4 g/dL (2.4-3.5); Magnesium 2.5 mg/dL (1.6-2.6); Phosphorous 6.1 mg/dL (2.7-4.5); Total Protein 5.7 g/dL (6.4-8.9)
[2021-11-18 04:40] LABS: ABG Base Excess -6 mEq/L (-2 to 3); ABG HCO3 21 mEq/L (21-27); ABG Oxygen Saturation 100 % (95-98); ABG PCO2 43 mmHg (35-45); ABG PH 7.29 pH Units (7.32-7.45); ABG PO2 229 mmHg (85-104); ABG TCO2 22 mEq/L (20-26); Blood Gas Modality AF; Blood Gas VT 420 cc
[2021-11-18 04:42] LABS: Macrocytosis Present (Not Present)
[2021-11-18 04:43] LABS: Platelet Estimate Decreased (Normal); Toxic Granulation Present (Not Present)
[2021-11-18] MEDS: FentaNYL (PF) 1,000 MCG/100 ML IV.SOLN IVC SCH ×4 (05:19→20:50)
[2021-11-18] MEDS: *HR* Heparin 5,000 UNIT/ML VIAL SQ SCH ×2 (05:47→17:39)
[2021-11-18] MEDS: Sennosides/Docusate Sodium TABLET PO SCH ×2 (08:17→21:03)
[2021-11-18] MEDS: Pantoprazole 40 MG VIAL IVP SCH ×2 (08:18→21:02)
[2021-11-18] MEDS: Dexamethasone Sodium Phos/PF 10 MG/ML VIAL IVP SCH (08:18)
[2021-11-18] MEDS: Chlorhexidine Rinse 15 ML MOUTHWASH MM SCH ×2 (08:18→21:01)
[2021-11-18] MEDS ORDERED: Clinimix 5%-20% SOLUTION 2,000 ML with MVI, adult with vitamin K 10 ML IVC SCH (17:00)
[2021-11-18] MEDS: Latanoprost 2.5 ML BOTTLE BOTH EYES SCH (21:43)
[2021-11-19] MEDS: Artificial Tears SOLN 15 ML BOTTLE BOTH EYES SCH ×7 (01:12→23:42)
[2021-11-19] MEDS: Piperacillin/Tazobactam 3.375 GM in 0.9 % Sodium Chloride Mini Bag 100 ML IVPB SCH ×4 (01:13→23:40)
[2021-11-19] MEDS: Insulin LISPRO 300 UNITS/3 ML VIAL SUBQ SCH ×7 (01:40→23:52)
[2021-11-19] MEDS: FentaNYL (PF) 1,000 MCG/100 ML IV.SOLN IVC SCH ×4 (02:38→18:40)
[2021-11-19 03:30] LABS: VBG Ionized Calcium 1.21 mmol/L (1.15-1.35)
[2021-11-19 04:33] LABS: ABG Base Excess -10 mEq/L (-2 to 3); ABG HCO3 19 mEq/L (21-27); ABG Oxygen Saturation 97 % (95-98); ABG PCO2 48 mmHg (35-45); ABG PO2 116 mmHg (85-104); ABG TCO2 20 mEq/L (20-26); Blood Gas VT 420 cc
[2021-11-19] MEDS: D5% in Water 1,000 ML IVC SCH (04:33)
[2021-11-19 05:00] LABS: Albumin 2.4 g/dL (3.5-5.7); Albumin/Globulin Ratio 0.7 (1.1-2.2); Bilirubin,Indirect 0.7 mg/dL (0.0-1.0); Bilirubin,Total 1.7 mg/dL (0.3-1.0); Calcium 9.1 mg/dL (8.6-10.3); Globulin 3.3 g/dL (2.4-3.5); Magnesium 2.3 mg/dL (1.6-2.6); Phosphorous 6.4 mg/dL (2.7-4.5); Potassium 5.1 mEq/L (3.5-5.1); Total Protein 5.7 g/dL (6.4-8.9)
[2021-11-19] MEDS: *HR* Heparin 5,000 UNIT/ML VIAL SQ SCH (05:32)
[2021-11-19 06:26] LABS: Red Cell Distribution Width 16.3 % (11.5-14.5)
[2021-11-19 06:28] LABS: Hematocrit 38.2 % (35.3-44.9); Hemoglobin 11.4 g/dL (11.5-15.4); Mean Corpuscular HGB Conc 29.8 g/dL (31.6-35.5); Mean Corpuscular Hemoglobin 34.2 pg (28.0-33.3); Mean Corpuscular Volume 114.7 fL (83.0-100.0); Nucleated Red Blood Cells 0.1 /100 WBC (0); Red Blood Count 3.33 M/mcL (3.82-4.97)
[2021-11-19 07:10] LABS: Platelet Count 59 K/mcL (140-400)
[2021-11-19 07:11] LABS: Lymphocytes # 1.6 K/mcL (0.6-4.6); Monocytes # 2.2 K/mcL (0.0-1.3); Neutrophils # 22.7 K/mcL (1.6-8.9); Platelet Estimate Decreased (Normal)
[2021-11-19] MEDS: Pantoprazole 40 MG VIAL IVP SCH ×2 (08:48→20:21)
[2021-11-19] MEDS: Chlorhexidine Rinse 15 ML MOUTHWASH MM SCH ×2 (08:48→20:21)
[2021-11-19] MEDS: Dexamethasone Sodium Phos/PF 10 MG/ML VIAL IVP SCH (08:48)
[2021-11-19] MEDS: Sennosides/Docusate Sodium TABLET PO SCH ×2 (08:49→20:23)
[2021-11-19] MEDS: Famotidine 20 MG/2 ML VIAL IVP SCH ×2 (11:28→16:54)
[2021-11-19] MEDS ORDERED: Vancomycin 1,250 MG/262.5 ML IV.SOLN IVPB ONE (12:00)
[2021-11-19] MEDS ORDERED: Clinimix 5%-20% SOLUTION 2,000 ML with MVI, adult with vitamin K 10 ML, Sodium Acetat... IVC SCH (17:00)
[2021-11-19] MEDS: Latanoprost 2.5 ML BOTTLE BOTH EYES SCH (20:41)
[2021-11-20] MEDS: FentaNYL (PF) 1,000 MCG/100 ML IV.SOLN IVC SCH ×4 (00:34→18:55)
[2021-11-20 02:55] LABS: VBG Ionized Calcium 1.46 mmol/L (1.15-1.35)
[2021-11-20 03:04] LABS: Nucleated Red Blood Cells 0.1 /100 WBC (0); Red Cell Distribution Width 15.9 % (11.5-14.5)
[2021-11-20 03:05] LABS: Hematocrit 36.6 % (35.3-44.9); Hemoglobin 11.1 g/dL (11.5-15.4); Immature Platelets 20.8 % (1.1-6.1); Mean Corpuscular HGB Conc 30.3 g/dL (31.6-35.5); Mean Corpuscular Hemoglobin 35.5 pg (28.0-33.3); Mean Corpuscular Volume 116.9 fL (83.0-100.0); Mean Platelet Volume 13.3 fL (9.4-12.4); Red Blood Count 3.13 M/mcL (3.82-4.97); White Blood Count 27.8 K/mcL (4.3-11.1)
[2021-11-20 03:14] LABS: Albumin 2.3 g/dL (3.5-5.7); Albumin/Globulin Ratio 0.7 (1.1-2.2); Bilirubin,Direct 1.3 mg/dL (0.0-0.2); Bilirubin,Indirect 0.7 mg/dL (0.0-1.0); Calcium 9.8 mg/dL (8.6-10.3); Globulin 3.3 g/dL (2.4-3.5); Magnesium 2.2 mg/dL (1.6-2.6); Phosphorous 6.8 mg/dL (2.7-4.5); Platelet Count 60 K/mcL (140-400); Potassium 5.2 mEq/L (3.5-5.1); Total Protein 5.6 g/dL (6.4-8.9)
[2021-11-20] MEDS: Dexmedetomidine HCl 400 MCG/100 ML MLS IVC SCH (03:56)
[2021-11-20] MEDS: Artificial Tears SOLN 15 ML BOTTLE BOTH EYES SCH ×6 (03:56→23:24)
[2021-11-20] MEDS: Insulin LISPRO 300 UNITS/3 ML VIAL SUBQ SCH ×6 (03:57→23:40)
[2021-11-20 04:06] LABS: Lymphocytes # 1.1 K/mcL (0.6-4.6); Monocytes # 1.4 K/mcL (0.0-1.3); Neutrophils # 25.3 K/mcL (1.6-8.9)
[2021-11-20 04:07] LABS: Platelet Estimate Decreased (Normal); Reactive Lymphocytes Present (Not Present)
[2021-11-20 05:02] LABS: ABG Base Excess -12 mEq/L (-2 to 3); ABG HCO3 20 mEq/L (21-27); ABG Oxygen Saturation 99 % (95-98); ABG PCO2 71 mmHg (35-45); ABG PH 7.05 pH Units (7.32-7.45); ABG PO2 174 mmHg (85-104); ABG TCO2 22 mEq/L (20-26); Blood Gas VT 420 cc
[2021-11-20] MEDS: Famotidine 20 MG/2 ML VIAL IVP SCH (05:07)
[2021-11-20] MEDS: Chlorhexidine Rinse 15 ML MOUTHWASH MM SCH ×2 (08:13→19:53)
[2021-11-20] MEDS: Pantoprazole 40 MG VIAL IVP SCH ×2 (08:13→19:53)
[2021-11-20] MEDS: Dexamethasone Sodium Phos/PF 10 MG/ML VIAL IVP SCH (08:13)
[2021-11-20] MEDS: Piperacillin/Tazobactam 3.375 GM in 0.9 % Sodium Chloride Mini Bag 100 ML IVPB SCH ×3 (08:14→23:24)
[2021-11-20] MEDS: Sennosides/Docusate Sodium TABLET PO SCH ×2 (08:14→19:55)
[2021-11-20] MEDS ORDERED: Insulin DETEMIR 100 UNIT/ML X5UNITS SUBQ ONE (09:45)
[2021-11-20 10:11] LABS: ABG Base Excess -7 mEq/L (-2 to 3); ABG HCO3 21 mEq/L (21-27); ABG Oxygen Saturation 99 % (95-98); ABG PCO2 53 mmHg (35-45); ABG PH 7.21 pH Units (7.32-7.45); ABG PO2 196 mmHg (85-104); ABG TCO2 23 mEq/L (20-26); Blood Gas VT 420 cc
[2021-11-20] MEDS ORDERED: Clinimix 5%-20% SOLUTION 2,000 ML with MVI, adult with vitamin K 10 ML, Sodium Acetat... IVC SCH (17:00)
[2021-11-20] MEDS: Latanoprost 2.5 ML BOTTLE BOTH EYES SCH (20:05)
[2021-11-20] MEDS ORDERED: Insulin DETEMIR 100 UNIT/ML X5UNITS SUBQ SCH (21:00)
[2021-11-21] MEDS: Dexmedetomidine HCl 400 MCG/100 ML MLS IVC SCH ×2 (00:54→22:34)
[2021-11-21] MEDS: FentaNYL (PF) 1,000 MCG/100 ML IV.SOLN IVC SCH ×4 (01:32→21:40)
[2021-11-21] MEDS: Artificial Tears SOLN 15 ML BOTTLE BOTH EYES SCH ×6 (03:56→23:44)
[2021-11-21] MEDS: Insulin LISPRO 300 UNITS/3 ML VIAL SUBQ SCH ×6 (03:56→23:44)
[2021-11-21 04:30] LABS: Hemoglobin 11.1 g/dL (11.5-15.4); Immature Granulocytes % 1.8 % (0-4); Mean Platelet Volume 13.9 fL (9.4-12.4)
[2021-11-21 04:32] LABS: VBG Ionized Calcium 1.55 mmol/L (1.15-1.35)
[2021-11-21 04:32] LABS: Basophils # 0.1 K/mcL (0.0-0.2); Basophils % 0.3 %; Eosinophils % 0.1 %; Hematocrit 36.1 % (35.3-44.9); Immature Platelets 19.8 % (1.1-6.1); Lymphocytes # 0.5 K/mcL (0.6-4.6); Lymphocytes % 2.3 %; Mean Corpuscular HGB Conc 30.7 g/dL (31.6-35.5); Mean Corpuscular Hemoglobin 34.5 pg (28.0-33.3); Mean Corpuscular Volume 112.1 fL (83.0-100.0); Monocytes # 1.7 K/mcL (0.0-1.3); Nucleated Red Blood Cells 0.1 /100 WBC (0); Red Blood Count 3.22 M/mcL (3.82-4.97); Red Cell Distribution Width 15.9 % (11.5-14.5); Segmented Neutrophils % 87.5 %; White Blood Count 21.7 K/mcL (4.3-11.1)
[2021-11-21 04:32] LABS: ABG Base Excess -5 mEq/L (-2 to 3); ABG HCO3 22 mEq/L (21-27); ABG Oxygen Saturation 96 % (95-98); ABG PCO2 49 mmHg (35-45); ABG PH 7.26 pH Units (7.32-7.45); ABG PO2 96 mmHg (85-104); ABG TCO2 23 mEq/L (20-26); Blood Gas VT 420 cc
[2021-11-21 04:33] LABS: Platelet Count 62 K/mcL (140-400)
[2021-11-21 04:45] LABS: Platelet Estimate Decreased (Normal); Poikilocytosis 1+ (Not Present); Target Cells 1+ (Not Present)
[2021-11-21 04:50] LABS: Albumin 2.2 g/dL (3.5-5.7); Albumin/Globulin Ratio 0.7 (1.1-2.2); Bilirubin,Direct 0.9 mg/dL (0.0-0.2); Bilirubin,Indirect 0.6 mg/dL (0.0-1.0); Bilirubin,Total 1.5 mg/dL (0.3-1.0); Calcium 10.3 mg/dL (8.6-10.3); Globulin 3.2 g/dL (2.4-3.5); Magnesium 2.3 mg/dL (1.6-2.6); Phosphorous 3.9 mg/dL (2.7-4.5); Potassium 4.6 mEq/L (3.5-5.1); Total Protein 5.4 g/dL (6.4-8.9)
[2021-11-21] MEDS: *HR* Enoxaparin 40 MG/0.4 ML SYRINGE SQ SCH (06:14)
[2021-11-21] MEDS: Pantoprazole 40 MG VIAL IVP SCH ×2 (08:01→19:44)
[2021-11-21] MEDS: Dexamethasone Sodium Phos/PF 10 MG/ML VIAL IVP SCH (08:01)
[2021-11-21] MEDS: Chlorhexidine Rinse 15 ML MOUTHWASH MM SCH ×2 (08:02→19:44)
[2021-11-21] MEDS: Sennosides/Docusate Sodium TABLET PO SCH ×2 (08:02→19:44)
[2021-11-21] MEDS: Piperacillin/Tazobactam 3.375 GM in 0.9 % Sodium Chloride Mini Bag 100 ML IVPB SCH ×3 (08:02→23:43)
[2021-11-21] MEDS: Famotidine 20 MG/2 ML VIAL IVP SCH (08:03)
[2021-11-21] MEDS: Insulin DETEMIR 100 UNIT/ML X5UNITS SUBQ SCH ×2 (09:00→19:44)
[2021-11-21] MEDS ORDERED: Clinimix 5%-20% SOLUTION 2,000 ML with MVI, adult with vitamin K 10 ML, Sodium Acetat... IVC SCH (17:00)
[2021-11-21] MEDS: Latanoprost 2.5 ML BOTTLE BOTH EYES SCH (19:44)
[2021-11-22] MEDS: FentaNYL (PF) 1,000 MCG/100 ML IV.SOLN IVC SCH ×2 (03:35→20:52)
[2021-11-22 03:59] LABS: VBG Ionized Calcium 1.71 mmol/L (1.15-1.35)
[2021-11-22 04:03] LABS: Basophils # 0.1 K/mcL (0.0-0.2); Basophils % 0.4 %; Hematocrit 34.5 % (35.3-44.9); Hemoglobin 10.7 g/dL (11.5-15.4); Immature Granulocytes % 2.8 % (0-4); Immature Platelets 17.2 % (1.1-6.1); Lymphocytes # 0.8 K/mcL (0.6-4.6); Lymphocytes % 3.3 %; Mean Corpuscular Hemoglobin 34.4 pg (28.0-33.3); Mean Corpuscular Volume 110.9 fL (83.0-100.0); Mean Platelet Volume 14.2 fL (9.4-12.4); Monocytes # 2.1 K/mcL (0.0-1.3); Neutrophils # 19.5 K/mcL (1.6-8.9); Nucleated Red Blood Cells 0.1 /100 WBC (0); Red Blood Count 3.11 M/mcL (3.82-4.97); Red Cell Distribution Width 15.9 % (11.5-14.5); Segmented Neutrophils % 84.5 %; White Blood Count 23.1 K/mcL (4.3-11.1)
[2021-11-22 04:15] LABS: Platelet Count 72 K/mcL (140-400)
[2021-11-22] MEDS: Artificial Tears SOLN 15 ML BOTTLE BOTH EYES SCH ×6 (04:18→23:59)
[2021-11-22] MEDS: Insulin LISPRO 300 UNITS/3 ML VIAL SUBQ SCH ×5 (04:19→21:03)
[2021-11-22 04:22] LABS: ABG Base Excess -4 mEq/L (-2 to 3); ABG HCO3 22 mEq/L (21-27); ABG Oxygen Saturation 94 % (95-98); ABG PCO2 44 mmHg (35-45); ABG PH 7.31 pH Units (7.32-7.45); ABG PO2 76 mmHg (85-104); ABG TCO2 24 mEq/L (20-26); Blood Gas VT 420 cc
[2021-11-22 04:31] LABS: Platelet Estimate Decreased (Normal)
[2021-11-22 04:32] LABS: Anisocytosis 1+ (Not Present)
[2021-11-22] MEDS: *HR* Enoxaparin 40 MG/0.4 ML SYRINGE SQ SCH (05:28)
[2021-11-22] MEDS: Chlorhexidine Rinse 15 ML MOUTHWASH MM SCH ×2 (08:30→20:53)
[2021-11-22] MEDS: Famotidine 20 MG/2 ML VIAL IVP SCH (08:30)
[2021-11-22] MEDS: Pantoprazole 40 MG VIAL IVP SCH ×2 (08:30→20:53)
[2021-11-22] MEDS: Piperacillin/Tazobactam 3.375 GM in 0.9 % Sodium Chloride Mini Bag 100 ML IVPB SCH ×3 (09:02→23:56)
[2021-11-22 11:50] LABS: Albumin 2.2 g/dL (3.5-5.7); Albumin/Globulin Ratio 0.7 (1.1-2.2); Bilirubin,Direct 0.9 mg/dL (0.0-0.2); Bilirubin,Indirect 0.7 mg/dL (0.0-1.0); Bilirubin,Total 1.6 mg/dL (0.3-1.0); Calcium 10.8 mg/dL (8.6-10.3); Globulin 3.1 g/dL (2.4-3.5); Magnesium 2.3 mg/dL (1.6-2.6); Phosphorous 3.1 mg/dL (2.7-4.5); Potassium 4.6 mEq/L (3.5-5.1); Total Protein 5.3 g/dL (6.4-8.9)
[2021-11-22] MEDS: Insulin DETEMIR 100 UNIT/ML X5UNITS SUBQ SCH ×2 (11:55→20:53)
[2021-11-22] MEDS: Dexmedetomidine HCl 400 MCG/100 ML MLS IVC SCH ×2 (12:03→20:52)
[2021-11-22] MEDS ORDERED: *HR* FentaNYL (PF) 100 MCG/2 ML VIAL IVP PRN (16:29)
[2021-11-22] MEDS ORDERED: Clinimix 5%-20% SOLUTION 2,000 ML with MVI, adult with vitamin K 10 ML, Sodium Acetat... IVC SCH (17:00)
[2021-11-22] MEDS: Latanoprost 2.5 ML BOTTLE BOTH EYES SCH (21:02)
[2021-11-23] MEDS: Insulin LISPRO 300 UNITS/3 ML VIAL SUBQ SCH ×7 (00:08→23:54)
[2021-11-23 03:18] LABS: VBG Ionized Calcium 1.69 mmol/L (1.15-1.35)
[2021-11-23 03:24] LABS: Basophils # 0.1 K/mcL (0.0-0.2); Basophils % 0.4 %; Eosinophils # 0.2 K/mcL (0.0-0.6); Hematocrit 34.7 % (35.3-44.9); Hemoglobin 10.9 g/dL (11.5-15.4); Immature Granulocytes % 3.7 % (0-4); Lymphocytes # 1.1 K/mcL (0.6-4.6); Lymphocytes % 5.6 %; Mean Corpuscular HGB Conc 31.4 g/dL (31.6-35.5); Mean Corpuscular Hemoglobin 34.2 pg (28.0-33.3); Mean Corpuscular Volume 108.8 fL (83.0-100.0); Mean Platelet Volume 12.6 fL (9.4-12.4); Monocytes # 1.3 K/mcL (0.0-1.3); Monocytes % 6.4 %; Neutrophils # 16.6 K/mcL (1.6-8.9); Nucleated Red Blood Cells 0.2 /100 WBC (0); Platelet Count 73 K/mcL (140-400); Red Blood Count 3.19 M/mcL (3.82-4.97); Red Cell Distribution Width 16.1 % (11.5-14.5); Segmented Neutrophils % 82.9 %
[2021-11-23 03:49] LABS: Albumin 2.2 g/dL (3.5-5.7); Albumin/Globulin Ratio 0.7 (1.1-2.2); Bilirubin,Direct 0.9 mg/dL (0.0-0.2); Bilirubin,Indirect 0.7 mg/dL (0.0-1.0); Bilirubin,Total 1.6 mg/dL (0.3-1.0); Calcium 11.5 mg/dL (8.6-10.3); Magnesium 2.4 mg/dL (1.6-2.6); Phosphorous 2.9 mg/dL (2.7-4.5); Potassium 4.2 mEq/L (3.5-5.1); Total Protein 5.2 g/dL (6.4-8.9)
[2021-11-23] MEDS: Artificial Tears SOLN 15 ML BOTTLE BOTH EYES SCH ×6 (04:48→23:52)
[2021-11-23] MEDS: *HR* Enoxaparin 40 MG/0.4 ML SYRINGE SQ SCH (05:04)
[2021-11-23] MEDS: Famotidine 20 MG/2 ML VIAL IVP SCH (08:34)
[2021-11-23] MEDS: Piperacillin/Tazobactam 3.375 GM in 0.9 % Sodium Chloride Mini Bag 100 ML IVPB SCH ×3 (08:34→23:50)
[2021-11-23] MEDS: Chlorhexidine Rinse 15 ML MOUTHWASH MM SCH ×2 (08:34→20:50)
[2021-11-23] MEDS: Pantoprazole 40 MG VIAL IVP SCH ×2 (08:34→20:50)
[2021-11-23] MEDS: Insulin DETEMIR 100 UNIT/ML X5UNITS SUBQ SCH ×2 (09:02→21:45)
[2021-11-23 12:20] LABS: ABG Base Excess -2 mEq/L (-2 to 3); ABG HCO3 22 mEq/L (21-27); ABG Oxygen Saturation 99 % (95-98); ABG PCO2 32 mmHg (35-45); ABG PH 7.44 pH Units (7.32-7.45); ABG PO2 141 mmHg (85-104); ABG TCO2 23 mEq/L (20-26); Blood Gas VT 420 cc
[2021-11-23] MEDS: Dexmedetomidine HCl 400 MCG/100 ML MLS IVC SCH ×2 (12:41→20:50)
[2021-11-23] MEDS: FentaNYL (PF) 1,000 MCG/100 ML IV.SOLN IVC SCH (15:37)
[2021-11-23] MEDS ORDERED: Clinimix 5%-20% SOLUTION 2,000 ML with MVI, adult with vitamin K 10 ML, Sodium Acetat... IVC SCH (17:00)
[2021-11-23] MEDS: Latanoprost 2.5 ML BOTTLE BOTH EYES SCH (20:57)
[2021-11-24 04:14] LABS: Mean Corpuscular Volume 108.9 fL (83.0-100.0)
[2021-11-24 04:16] LABS: VBG Ionized Calcium 1.86 mmol/L (1.15-1.35)
[2021-11-24 04:16] LABS: Hemoglobin 10.3 g/dL (11.5-15.4); Immature Platelets 13.4 % (1.1-6.1); Mean Corpuscular HGB Conc 31.2 g/dL (31.6-35.5); Mean Platelet Volume 12.7 fL (9.4-12.4); Red Blood Count 3.03 M/mcL (3.82-4.97); Red Cell Distribution Width 16.2 % (11.5-14.5); White Blood Count 18.1 K/mcL (4.3-11.1)
[2021-11-24 04:30] LABS: Albumin 2.1 g/dL (3.5-5.7); Albumin/Globulin Ratio 0.7 (1.1-2.2); Bilirubin,Indirect 0.9 mg/dL (0.0-1.0); Bilirubin,Total 1.9 mg/dL (0.3-1.0); Calcium 11.8 mg/dL (8.6-10.3); Globulin 2.9 g/dL (2.4-3.5); Magnesium 2.4 mg/dL (1.6-2.6); Phosphorous 2.8 mg/dL (2.7-4.5); Potassium 3.7 mEq/L (3.5-5.1)
[2021-11-24] MEDS: Dexmedetomidine HCl 400 MCG/100 ML MLS IVC SCH ×3 (04:34→22:03)
[2021-11-24 05:06] LABS: ABG Base Excess -3 mEq/L (-2 to 3); ABG HCO3 22 mEq/L (21-27); ABG Oxygen Saturation 99 % (95-98); ABG PCO2 38 mmHg (35-45); ABG PH 7.37 pH Units (7.32-7.45); ABG PO2 148 mmHg (85-104); ABG TCO2 23 mEq/L (20-26); Blood Gas Modality ASSIST CONTROL; Blood Gas VT 420 cc
[2021-11-24] MEDS: Artificial Tears SOLN 15 ML BOTTLE BOTH EYES SCH ×6 (05:29→23:26)
[2021-11-24] MEDS: *HR* Enoxaparin 40 MG/0.4 ML SYRINGE SQ SCH (05:32)
[2021-11-24] MEDS: Insulin LISPRO 300 UNITS/3 ML VIAL SUBQ SCH ×6 (05:34→23:45)
[2021-11-24] MEDS: FentaNYL (PF) 1,000 MCG/100 ML IV.SOLN IVC SCH (06:15)
[2021-11-24] MEDS: Chlorhexidine Rinse 15 ML MOUTHWASH MM SCH ×2 (07:22→19:57)
[2021-11-24] MEDS: Pantoprazole 40 MG VIAL IVP SCH ×2 (07:22→19:57)
[2021-11-24] MEDS: Piperacillin/Tazobactam 3.375 GM in 0.9 % Sodium Chloride Mini Bag 100 ML IVPB SCH (07:22)
[2021-11-24] MEDS ORDERED: Furosemide 20 MG/2 ML VIAL IVP ONE (07:46)
[2021-11-24] MEDS: Insulin DETEMIR 100 UNIT/ML X5UNITS SUBQ SCH ×2 (07:49→20:30)
[2021-11-24] MEDS ORDERED: *HR* Midazolam HCl 5 MG/5 ML VIAL IVP ONE (12:30)
[2021-11-24] MEDS ORDERED: *HR* FentaNYL (PF) 100 MCG/2 ML VIAL IVP ONE (12:30)
[2021-11-24] MEDS ORDERED: Clinimix 5%-20% SOLUTION 2,000 ML with MVI, adult with vitamin K 10 ML, Sodium Acetat... IVC SCH (17:00)
[2021-11-24] MEDS: Latanoprost 2.5 ML BOTTLE BOTH EYES SCH (20:32)
[2021-11-24 20:49] LABS: Appearance of Body Fluid Hazy (Clear); Volume of Body Fluid 15 mL
[2021-11-25] MEDS: Artificial Tears SOLN 15 ML BOTTLE BOTH EYES SCH ×5 (03:27→21:00)
[2021-11-25] MEDS: Insulin LISPRO 300 UNITS/3 ML VIAL SUBQ SCH ×5 (03:53→21:01)
[2021-11-25 04:00] LABS: ABG Base Excess -3 mEq/L (-2 to 3); ABG HCO3 21 mEq/L (21-27); ABG Oxygen Saturation 97 % (95-98); ABG PCO2 33 mmHg (35-45); ABG PH 7.41 pH Units (7.32-7.45); ABG PO2 92 mmHg (85-104); ABG TCO2 22 mEq/L (20-26); Blood Gas VT 420 cc
[2021-11-25 04:39] LABS: VBG Ionized Calcium 1.83 mmol/L (1.15-1.35)
[2021-11-25 04:46] LABS: Basophils % 0.3 %
[2021-11-25 04:48] LABS: Eosinophils # 0.3 K/mcL (0.0-0.6); Eosinophils % 2.3 %; Hemoglobin 10.2 g/dL (11.5-15.4); Immature Granulocytes % 2.7 % (0-4); Immature Platelets 14.6 % (1.1-6.1); Lymphocytes % 6.4 %; Mean Corpuscular HGB Conc 31.9 g/dL (31.6-35.5); Mean Corpuscular Hemoglobin 34.8 pg (28.0-33.3); Mean Corpuscular Volume 109.2 fL (83.0-100.0); Mean Platelet Volume 13.5 fL (9.4-12.4); Monocytes # 1.4 K/mcL (0.0-1.3); Monocytes % 9.3 %; Neutrophils # 11.8 K/mcL (1.6-8.9); Nucleated Red Blood Cells 0.1 /100 WBC (0); Red Blood Count 2.93 M/mcL (3.82-4.97); Red Cell Distribution Width 16.5 % (11.5-14.5); White Blood Count 14.9 K/mcL (4.3-11.1)
[2021-11-25 04:57] LABS: Platelet Count 73 K/mcL (140-400)
[2021-11-25 05:01] LABS: Alanine Aminotransferase 44 Units/L (7-52); Albumin 2.1 g/dL (3.5-5.7); Albumin/Globulin Ratio 0.7 (1.1-2.2); Alkaline Phosphatase 156 Units/L (34-104); Aspartate Amino Transferase 33 Units/L (13-39); BUN/Creatinine Ratio 87 (6-26); Bilirubin,Total 1.8 mg/dL (0.3-1.0); Blood Urea Nitrogen 92 mg/dL (6-20); Calcium 11.6 mg/dL (8.6-10.3); Carbon Dioxide 21 mEq/L (23-29); Chloride 122 mEq/L (98-107); Globulin 3.1 g/dL (2.4-3.5); Glucose 197 mg/dL (70-105); Osmolality,Calculated 340 (280-300); Potassium 3.6 mEq/L (3.5-5.1); Sodium 148 mEq/L (136-145); Total Protein 5.2 g/dL (6.4-8.9); Triglycerides 144 mg/dL (< 150); eGFR For African Americans > 60 (> 60); eGFR For Non-African Americans 54 (> 60)
[2021-11-25] MEDS: *HR* Enoxaparin 40 MG/0.4 ML SYRINGE SQ SCH (05:47)
[2021-11-25] MEDS: Dexmedetomidine HCl 400 MCG/100 ML MLS IVC SCH ×3 (06:42→21:47)
[2021-11-25] MEDS ORDERED: Furosemide 40 MG/4 ML VIAL IVP ONE (07:54)
[2021-11-25] MEDS: Clotrimazole 1% CRM 15 GM TUBE TP SCH ×2 (08:15→21:03)
[2021-11-25] MEDS: Chlorhexidine Rinse 15 ML MOUTHWASH MM SCH ×2 (08:15→21:02)
[2021-11-25] MEDS: Pantoprazole 40 MG VIAL IVP SCH ×2 (08:16→21:02)
[2021-11-25] MEDS: Insulin DETEMIR 100 UNIT/ML X5UNITS SUBQ SCH ×2 (08:16→21:02)
[2021-11-25] MEDS: Fluconazole 40 MG/ML UDC GTUBE SCH (09:18)
[2021-11-25] MEDS: Vancomycin 1,250 MG/262.5 ML IV.SOLN IVPB SCH (17:25)
[2021-11-25] MEDS: FentaNYL (PF) 1,000 MCG/100 ML IV.SOLN IVC SCH (17:26)
[2021-11-25] MEDS: Latanoprost 2.5 ML BOTTLE BOTH EYES SCH (21:00)
[2021-11-26] MEDS: Insulin LISPRO 300 UNITS/3 ML VIAL SUBQ SCH ×6 (00:40→19:51)
[2021-11-26] MEDS: Artificial Tears SOLN 15 ML BOTTLE BOTH EYES SCH ×7 (00:43→23:30)
[2021-11-26 04:10] LABS: ABG Base Excess -2 mEq/L (-2 to 3); ABG HCO3 22 mEq/L (21-27); ABG Oxygen Saturation 93 % (95-98); ABG PCO2 32 mmHg (35-45); ABG PH 7.44 pH Units (7.32-7.45); ABG PO2 65 mmHg (85-104); ABG TCO2 23 mEq/L (20-26); Blood Gas Modality ASSIST CONTROL; Blood Gas VT 420 cc
[2021-11-26 05:06] LABS: Alanine Aminotransferase 48 Units/L (7-52); Albumin 2.1 g/dL (3.5-5.7); Albumin/Globulin Ratio 0.7 (1.1-2.2); Alkaline Phosphatase 188 Units/L (34-104); Aspartate Amino Transferase 46 Units/L (13-39); BUN/Creatinine Ratio 92 (6-26); Bilirubin,Total 1.7 mg/dL (0.3-1.0); Blood Urea Nitrogen 86 mg/dL (6-20); Calcium 11.2 mg/dL (8.6-10.3); Carbon Dioxide 23 mEq/L (23-29); Chloride 121 mEq/L (98-107); Globulin 3.2 g/dL (2.4-3.5); Glucose 131 mg/dL (70-105); Magnesium 1.8 mg/dL (1.6-2.6); Osmolality,Calculated 334 (280-300); Phosphorous 3.4 mg/dL (2.7-4.5); Sodium 148 mEq/L (136-145); Total Protein 5.3 g/dL (6.4-8.9); eGFR For African Americans > 60 (> 60); eGFR For Non-African Americans > 60 (> 60)
[2021-11-26] MEDS: *HR* Enoxaparin 40 MG/0.4 ML SYRINGE SQ SCH (06:20)
[2021-11-26] MEDS ORDERED: Furosemide 40 MG/4 ML VIAL IVP ONE (07:33)
[2021-11-26] MEDS: Insulin DETEMIR 100 UNIT/ML X5UNITS SUBQ SCH ×2 (08:18→19:49)
[2021-11-26] MEDS: Fluconazole 40 MG/ML UDC GTUBE SCH (08:18)
[2021-11-26] MEDS: Chlorhexidine Rinse 15 ML MOUTHWASH MM SCH ×2 (08:18→19:48)
[2021-11-26] MEDS: Pantoprazole 40 MG VIAL IVP SCH ×2 (08:18→19:49)
[2021-11-26] MEDS: Clotrimazole 1% CRM 15 GM TUBE TP SCH ×2 (09:12→19:50)
[2021-11-26] MEDS: Dexmedetomidine HCl 400 MCG/100 ML MLS IVC SCH ×4 (09:30→23:30)
[2021-11-26] MEDS: Docusate Oral Soln 100 MG/10 ML UDC GTUBE SCH ×2 (09:38→19:48)
[2021-11-26] MEDS ORDERED: Lactulose Oral Soln 20 GM/30 ML UDC GTUBE ONE (10:27)
[2021-11-26] MEDS: QUEtiapine Fumarate 25 MG TABLET GTUBE SCH ×2 (13:55→19:48)
[2021-11-26 14:06] LABS: Hemoglobin 9.5 g/dL (11.5-15.4); Nucleated Red Blood Cells 0.2 /100 WBC (0)
[2021-11-26 14:09] LABS: Basophils % 0.2 %; Eosinophils # 0.3 K/mcL (0.0-0.6); Eosinophils % 2.2 %; Hematocrit 30.2 % (35.3-44.9); Immature Platelets 12.8 % (1.1-6.1); Lymphocytes # 1.3 K/mcL (0.6-4.6); Lymphocytes % 10.3 %; Mean Corpuscular HGB Conc 31.5 g/dL (31.6-35.5); Mean Corpuscular Hemoglobin 33.8 pg (28.0-33.3); Mean Corpuscular Volume 107.5 fL (83.0-100.0); Monocytes # 1.2 K/mcL (0.0-1.3); Monocytes % 9.2 %; Red Blood Count 2.81 M/mcL (3.82-4.97); Red Cell Distribution Width 16.8 % (11.5-14.5); Segmented Neutrophils % 77.1 %
[2021-11-26 14:13] LABS: Platelet Count 75 K/mcL (140-400)
[2021-11-26] MEDS: Vancomycin 1,250 MG/262.5 ML IV.SOLN IVPB SCH (17:41)
[2021-11-26] MEDS ORDERED: *HR* FentaNYL (PF) 100 MCG/2 ML VIAL IVP ONE (17:53)
[2021-11-26] MEDS ORDERED: *HR* FentaNYL (PF) 100 MCG/2 ML VIAL ONE (17:54)
[2021-11-26] MEDS: FentaNYL (PF) 1,000 MCG/100 ML IV.SOLN IVC SCH ×2 (18:13→23:29)
[2021-11-26] MEDS ORDERED: *HR* Midazolam HCl 5 MG/5 ML VIAL IVP ONE ×2 (18:47→18:50)
[2021-11-26] MEDS ORDERED: *HR* Midazolam HCl 2 MG/2 ML VIAL IVP ONE (18:59)
[2021-11-26] MEDS: Latanoprost 2.5 ML BOTTLE BOTH EYES SCH (19:50)
[2021-11-26] MEDS: Ipratropium 1 PUFF INHALER IH SCH ×2 (19:54→23:53)
[2021-11-27] MEDS: Dexmedetomidine HCl 400 MCG/100 ML MLS IVC SCH ×4 (02:07→22:34)
[2021-11-27] MEDS ORDERED: Albumin Human 5% 12.5 GM/250 ML IV.SOLN IVPB ONE (03:05)
[2021-11-27] MEDS: Insulin LISPRO 300 UNITS/3 ML VIAL SUBQ SCH ×6 (03:09→23:08)
[2021-11-27] MEDS: Artificial Tears SOLN 15 ML BOTTLE BOTH EYES SCH ×6 (03:23→23:47)
[2021-11-27] MEDS: Ipratropium 1 PUFF INHALER IH SCH ×6 (03:51→23:50)
[2021-11-27 04:14] LABS: Basophils % 0.2 %; Eosinophils % 1.3 %; Hemoglobin 9.3 g/dL (11.5-15.4); Red Cell Distribution Width 16.8 % (11.5-14.5)
[2021-11-27 04:17] LABS: Eosinophils # 0.2 K/mcL (0.0-0.6); Hematocrit 28.6 % (35.3-44.9); Immature Platelets 13.4 % (1.1-6.1); Lymphocytes # 1.4 K/mcL (0.6-4.6); Lymphocytes % 8.4 %; Mean Corpuscular HGB Conc 32.5 g/dL (31.6-35.5); Mean Corpuscular Volume 107.5 fL (83.0-100.0); Monocytes # 0.9 K/mcL (0.0-1.3); Monocytes % 5.4 %; Neutrophils # 13.7 K/mcL (1.6-8.9); Red Blood Count 2.66 M/mcL (3.82-4.97); Segmented Neutrophils % 83.7 %; White Blood Count 16.4 K/mcL (4.3-11.1)
[2021-11-27 04:23] LABS: Albumin/Globulin Ratio 0.6 (1.1-2.2); Bilirubin,Total 2.3 mg/dL (0.3-1.0); Calcium 10.3 mg/dL (8.6-10.3); Globulin 3.2 g/dL (2.4-3.5); Magnesium 1.8 mg/dL (1.6-2.6); Phosphorous 5.4 mg/dL (2.7-4.5); Potassium 4.3 mEq/L (3.5-5.1); Total Protein 5.2 g/dL (6.4-8.9)
[2021-11-27 04:31] LABS: Platelet Count 82 K/mcL (140-400)
[2021-11-27 04:38] LABS: ABG Base Excess -4 mEq/L (-2 to 3); ABG HCO3 21 mEq/L (21-27); ABG Oxygen Saturation 93 % (95-98); ABG PCO2 36 mmHg (35-45); ABG PH 7.37 pH Units (7.32-7.45); ABG PO2 67 mmHg (85-104); ABG TCO2 22 mEq/L (20-26); Blood Gas VT 420 cc
[2021-11-27] MEDS: Nystatin POWDER 30 GM BOTTLE TP SCH ×4 (04:45→23:06)
[2021-11-27] MEDS: *HR* Enoxaparin 40 MG/0.4 ML SYRINGE SQ SCH (05:09)
[2021-11-27] MEDS: FentaNYL (PF) 1,000 MCG/100 ML IV.SOLN IVC SCH ×2 (05:59→15:54)
[2021-11-27] MEDS: QUEtiapine Fumarate 25 MG TABLET GTUBE SCH ×2 (08:38→22:26)
[2021-11-27] MEDS: Docusate Oral Soln 100 MG/10 ML UDC GTUBE SCH ×2 (08:38→22:25)
[2021-11-27] MEDS: Chlorhexidine Rinse 15 ML MOUTHWASH MM SCH ×2 (08:38→22:26)
[2021-11-27] MEDS: Pantoprazole 40 MG VIAL IVP SCH ×2 (08:39→22:25)
[2021-11-27] MEDS: *HR* Dextrose 50 % in Water (Syg) 50 ML SYRINGE IVP PRN ×3 (09:01→15:49)
[2021-11-27] MEDS: Fluconazole 40 MG/ML UDC GTUBE SCH (09:09)
[2021-11-27] MEDS: Clotrimazole 1% CRM 15 GM TUBE TP SCH ×2 (09:10→23:06)
[2021-11-27] MEDS ORDERED: Albumin 25% 12.5gm/50mL 12.5 GM/50 ML IV.SOLN IVPB ONE (15:05)
[2021-11-27] MEDS: Cefepime HCl 2,000 MG in 0.9 % Sodium Chloride Mini Bag 100 ML IVPB SCH (15:11)
[2021-11-27] MEDS: Norepinephrine 4 MG/254 ML IV.SOLN IVC SCH (16:00)
[2021-11-27] MEDS: MetroNIDAZOLE 500 MG/100 ML 500 MG/100 ML BAG IVPB SCH ×2 (17:22→23:01)
[2021-11-27] MEDS: Vancomycin 1,250 MG/262.5 ML IV.SOLN IVPB SCH (22:06)
[2021-11-27] MEDS: MethylPREDNISolone 40 MG/ML VIAL IVP SCH (23:04)
[2021-11-27] MEDS: Latanoprost 2.5 ML BOTTLE BOTH EYES SCH (23:06)
[2021-11-27] MEDS: Insulin DETEMIR 100 UNIT/ML X5UNITS SUBQ SCH (23:09)
[2021-11-28] MEDS: Insulin LISPRO 300 UNITS/3 ML VIAL SUBQ SCH ×6 (02:57→20:38)
[2021-11-28] MEDS: Cefepime HCl 2,000 MG in 0.9 % Sodium Chloride Mini Bag 100 ML IVPB SCH ×2 (03:33→15:08)
[2021-11-28] MEDS: Ipratropium 1 PUFF INHALER IH SCH ×6 (03:53→23:59)
[2021-11-28] MEDS: FentaNYL (PF) 1,000 MCG/100 ML IV.SOLN IVC SCH ×3 (04:52→22:23)
[2021-11-28] MEDS: Dexmedetomidine HCl 400 MCG/100 ML MLS IVC SCH ×4 (04:54→18:01)
[2021-11-28 04:56] LABS: VBG Ionized Calcium 1.46 mmol/L (1.15-1.35)
[2021-11-28 04:59] LABS: Hematocrit 29.4 % (35.3-44.9); Hemoglobin 9.2 g/dL (11.5-15.4); Immature Platelets 11.9 % (1.1-6.1); Lymphocytes # 0.3 K/mcL (0.6-4.6); Mean Corpuscular HGB Conc 31.3 g/dL (31.6-35.5); Mean Corpuscular Hemoglobin 33.6 pg (28.0-33.3); Mean Corpuscular Volume 107.3 fL (83.0-100.0); Red Blood Count 2.74 M/mcL (3.82-4.97); Red Cell Distribution Width 16.9 % (11.5-14.5); White Blood Count 12.7 K/mcL (4.3-11.1)
[2021-11-28 05:09] LABS: Platelet Count 66 K/mcL (140-400)
[2021-11-28 05:16] LABS: Calcium 9.8 mg/dL (8.6-10.3); Magnesium 1.7 mg/dL (1.6-2.6); Potassium 4.2 mEq/L (3.5-5.1)
[2021-11-28] MEDS: Artificial Tears SOLN 15 ML BOTTLE BOTH EYES SCH ×5 (05:22→20:30)
[2021-11-28] MEDS: *HR* Enoxaparin 40 MG/0.4 ML SYRINGE SQ SCH (06:06)
[2021-11-28] MEDS: MethylPREDNISolone 40 MG/ML VIAL IVP SCH ×3 (06:08→20:31)
[2021-11-28 06:10] LABS: ABG Base Excess -6 mEq/L (-2 to 3); ABG HCO3 20 mEq/L (21-27); ABG Oxygen Saturation 99 % (95-98); ABG PCO2 39 mmHg (35-45); ABG PH 7.32 pH Units (7.32-7.45); ABG PO2 172 mmHg (85-104); ABG TCO2 21 mEq/L (20-26); Blood Gas VT 420 cc
[2021-11-28 06:28] LABS: Monocytes # 0.3 K/mcL (0.0-1.3); Neutrophils # 12.2 K/mcL (1.6-8.9); Platelet Estimate Decreased (Normal); Toxic Granulation Present (Not Present)
[2021-11-28] MEDS: Chlorhexidine Rinse 15 ML MOUTHWASH MM SCH ×2 (08:04→20:30)
[2021-11-28] MEDS: Docusate Oral Soln 100 MG/10 ML UDC GTUBE SCH ×2 (08:04→20:30)
[2021-11-28] MEDS: Pantoprazole 40 MG VIAL IVP SCH ×2 (08:04→20:31)
[2021-11-28] MEDS: MetroNIDAZOLE 500 MG/100 ML 500 MG/100 ML BAG IVPB SCH ×3 (08:05→23:38)
[2021-11-28] MEDS: Nystatin POWDER 30 GM BOTTLE TP SCH ×3 (08:07→20:33)
[2021-11-28] MEDS: QUEtiapine Fumarate 25 MG TABLET GTUBE SCH ×2 (08:07→20:30)
[2021-11-28] MEDS: Fluconazole 40 MG/ML UDC GTUBE SCH (09:28)
[2021-11-28] MEDS: Clotrimazole 1% CRM 15 GM TUBE TP SCH ×2 (09:31→20:32)
[2021-11-28] MEDS: Norepinephrine 4 MG/254 ML IV.SOLN IVC SCH ×2 (15:45→20:35)
[2021-11-28] MEDS ORDERED: 0.9 % Sodium Chloride 250 ML ONE (16:20)
[2021-11-28] MEDS: Vancomycin 1,250 MG/262.5 ML IV.SOLN IVPB SCH (18:18)
[2021-11-28] MEDS: Latanoprost 2.5 ML BOTTLE BOTH EYES SCH (20:33)
[2021-11-28] MEDS: Insulin DETEMIR 100 UNIT/ML X5UNITS SUBQ SCH (21:04)
[2021-11-29] MEDS: Dexmedetomidine HCl 400 MCG/100 ML MLS IVC SCH ×3 (01:06→21:15)
[2021-11-29] MEDS: Insulin LISPRO 300 UNITS/3 ML VIAL SUBQ SCH ×6 (01:17→21:46)
[2021-11-29] MEDS: Cefepime HCl 2,000 MG in 0.9 % Sodium Chloride Mini Bag 100 ML IVPB SCH ×2 (02:49→15:03)
[2021-11-29] MEDS: Ipratropium 1 PUFF INHALER IH SCH ×6 (03:37→23:28)
[2021-11-29] MEDS: Artificial Tears SOLN 15 ML BOTTLE BOTH EYES SCH ×6 (03:39→21:18)
[2021-11-29 03:55] LABS: White Blood Count 9.2 K/mcL (4.3-11.1)
[2021-11-29 03:56] LABS: Hematocrit 27.4 % (35.3-44.9); Hemoglobin 8.7 g/dL (11.5-15.4); Immature Granulocytes % 0.7 % (0-4); Immature Platelets 12.8 % (1.1-6.1); Lymphocytes % 4.8 %; Mean Corpuscular HGB Conc 31.8 g/dL (31.6-35.5); Mean Corpuscular Hemoglobin 34.7 pg (28.0-33.3); Mean Corpuscular Volume 109.2 fL (83.0-100.0); Mean Platelet Volume 13.1 fL (9.4-12.4); Monocytes % 3.2 %; Red Blood Count 2.51 M/mcL (3.82-4.97); Red Cell Distribution Width 16.8 % (11.5-14.5); Segmented Neutrophils % 91.1 %
[2021-11-29 03:57] LABS: Basophils % 0.2 %; Lymphocytes # 0.4 K/mcL (0.6-4.6); Monocytes # 0.3 K/mcL (0.0-1.3); Neutrophils # 8.4 K/mcL (1.6-8.9)
[2021-11-29 04:02] LABS: Platelet Count 61 K/mcL (140-400)
[2021-11-29 04:03] LABS: VBG Ionized Calcium 1.59 mmol/L (1.15-1.35)
[2021-11-29 04:17] LABS: BUN/Creatinine Ratio 80 (6-26); Blood Urea Nitrogen 87 mg/dL (6-20); Calcium 10.2 mg/dL (8.6-10.3); Carbon Dioxide 20 mEq/L (23-29); Chloride 121 mEq/L (98-107); Glucose 239 mg/dL (70-105); Osmolality,Calculated 340 (280-300); Potassium 4.1 mEq/L (3.5-5.1); Sodium 148 mEq/L (136-145); eGFR For African Americans > 60 (> 60); eGFR For Non-African Americans 52 (> 60)
[2021-11-29 05:12] LABS: ABG Base Excess -4 mEq/L (-2 to 3); ABG HCO3 21 mEq/L (21-27); ABG Oxygen Saturation 98 % (95-98); ABG PCO2 40 mmHg (35-45); ABG PH 7.34 pH Units (7.32-7.45); ABG PO2 112 mmHg (85-104); ABG TCO2 23 mEq/L (20-26); Blood Gas Modality ASSIST CONTROL; Blood Gas VT 420 cc
[2021-11-29] MEDS: *HR* Enoxaparin 40 MG/0.4 ML SYRINGE SQ SCH (05:28)
[2021-11-29] MEDS: MethylPREDNISolone 40 MG/ML VIAL IVP SCH ×3 (05:29→21:16)
[2021-11-29] MEDS: FentaNYL (PF) 1,000 MCG/100 ML IV.SOLN IVC SCH (06:25)
[2021-11-29] MEDS: Pantoprazole 40 MG VIAL IVP SCH ×2 (08:57→21:16)
[2021-11-29] MEDS: Chlorhexidine Rinse 15 ML MOUTHWASH MM SCH ×2 (08:57→21:17)
[2021-11-29] MEDS: QUEtiapine Fumarate 25 MG TABLET GTUBE SCH (08:57)
[2021-11-29] MEDS: Docusate Oral Soln 100 MG/10 ML UDC GTUBE SCH ×2 (08:57→21:16)
[2021-11-29] MEDS: Fluconazole 40 MG/ML UDC GTUBE SCH (08:58)
[2021-11-29] MEDS: Insulin DETEMIR 100 UNIT/ML X5UNITS SUBQ SCH ×2 (08:58→21:47)
[2021-11-29] MEDS: MetroNIDAZOLE 500 MG/100 ML 500 MG/100 ML BAG IVPB SCH ×3 (08:59→21:17)
[2021-11-29] MEDS: Clotrimazole 1% CRM 15 GM TUBE TP SCH ×2 (09:02→21:22)
[2021-11-29] MEDS: Nystatin POWDER 30 GM BOTTLE TP SCH ×3 (09:02→21:23)
[2021-11-29] MEDS: Norepinephrine 4 MG/254 ML IV.SOLN IVC SCH (09:03)
[2021-11-29] MEDS: Vancomycin 1,250 MG/262.5 ML IV.SOLN IVPB SCH (18:21)
[2021-11-29] MEDS: Latanoprost 2.5 ML BOTTLE BOTH EYES SCH (21:20)
[2021-11-30] MEDS: Artificial Tears SOLN 15 ML BOTTLE BOTH EYES SCH ×4 (00:33→10:36)
[2021-11-30] MEDS: Insulin LISPRO 300 UNITS/3 ML VIAL SUBQ SCH ×6 (00:34→20:38)
[2021-11-30] MEDS: Dexmedetomidine HCl 400 MCG/100 ML MLS IVC SCH ×2 (01:52→06:27)
[2021-11-30] MEDS: Cefepime HCl 2,000 MG in 0.9 % Sodium Chloride Mini Bag 100 ML IVPB SCH (03:09)
[2021-11-30 03:37] LABS: Basophils % 0.1 %; Hematocrit 30.5 % (35.3-44.9); Hemoglobin 9.9 g/dL (11.5-15.4); Immature Granulocytes % 0.7 % (0-4); Lymphocytes # 0.7 K/mcL (0.6-4.6); Lymphocytes % 4.6 %; Mean Corpuscular HGB Conc 32.5 g/dL (31.6-35.5); Mean Corpuscular Hemoglobin 35.2 pg (28.0-33.3); Mean Corpuscular Volume 108.5 fL (83.0-100.0); Monocytes # 0.5 K/mcL (0.0-1.3); Monocytes % 3.2 %; Neutrophils # 12.9 K/mcL (1.6-8.9); Red Blood Count 2.81 M/mcL (3.82-4.97); Red Cell Distribution Width 17.2 % (11.5-14.5); Segmented Neutrophils % 91.4 %
[2021-11-30 03:38] LABS: Platelet Count 85 K/mcL (140-400); White Blood Count 14.1 K/mcL (4.3-11.1)
[2021-11-30] MEDS: Ipratropium 1 PUFF INHALER IH SCH ×3 (03:52→12:21)
[2021-11-30 04:11] LABS: Alanine Aminotransferase 55 Units/L (7-52); Albumin 2.4 g/dL (3.5-5.7); Albumin/Globulin Ratio 0.7 (1.1-2.2); Alkaline Phosphatase 208 Units/L (34-104); Aspartate Amino Transferase 44 Units/L (13-39); BUN/Creatinine Ratio 82 (6-26); Bilirubin,Direct 0.9 mg/dL (0.0-0.2); Bilirubin,Indirect 0.9 mg/dL (0.0-1.0); Bilirubin,Total 1.8 mg/dL (0.3-1.0); Blood Urea Nitrogen 85 mg/dL (6-20); Calcium 11.1 mg/dL (8.6-10.3); Carbon Dioxide 20 mEq/L (23-29); Chloride 124 mEq/L (98-107); Globulin 3.5 g/dL (2.4-3.5); Glucose 112 mg/dL (70-105); Lipase 34 Units/L (11-82); Osmolality,Calculated 339 (280-300); Potassium 4.3 mEq/L (3.5-5.1); Sodium 151 mEq/L (136-145); Total Protein 5.9 g/dL (6.4-8.9); eGFR For African Americans > 60 (> 60); eGFR For Non-African Americans 55 (> 60)
[2021-11-30] MEDS: MethylPREDNISolone 40 MG/ML VIAL IVP SCH (05:58)
[2021-11-30] MEDS: Norepinephrine 4 MG/254 ML IV.SOLN IVC SCH ×3 (07:33→17:21)
[2021-11-30] MEDS: Pantoprazole 40 MG VIAL IVP SCH (07:37)
[2021-11-30] MEDS: Chlorhexidine Rinse 15 ML MOUTHWASH MM SCH (07:38)
[2021-11-30] MEDS: MetroNIDAZOLE 500 MG/100 ML 500 MG/100 ML BAG IVPB SCH ×3 (07:38→23:59)
[2021-11-30] MEDS: Docusate Oral Soln 100 MG/10 ML UDC GTUBE SCH ×2 (07:39→20:38)
[2021-11-30] MEDS: Insulin DETEMIR 100 UNIT/ML X5UNITS SUBQ SCH ×2 (07:39→20:38)
[2021-11-30] MEDS: Nystatin POWDER 30 GM BOTTLE TP SCH ×3 (07:57→20:39)
[2021-11-30] MEDS: Clotrimazole 1% CRM 15 GM TUBE TP SCH ×2 (08:21→20:39)
[2021-11-30] MEDS: Fluconazole 40 MG/ML UDC GTUBE SCH (08:57)
[2021-11-30] MEDS ORDERED: *HR* Labetalol 20 MG/4 ML SYRINGE IVP PRN ×2 (11:25→17:05)
[2021-11-30] MEDS ORDERED: D5% in Lactated Ringers 1,000 ML IVC SCH (11:30)
[2021-11-30] MEDS ORDERED: Ipratropium/Albuterol Neb 3 ML ONE (16:37)
[2021-11-30] MEDS ORDERED: Ipratropium/Albuterol Neb 3 ML IH SCH (16:45)
[2021-11-30] MEDS: Vancomycin 1,250 MG/262.5 ML IV.SOLN IVPB SCH (16:57)
[2021-11-30] MEDS ORDERED: Dextrose Gel 15 GM/37.5 ML TUBE PO PRN ×2 (17:05)
[2021-11-30] MEDS ORDERED: D5% in Water 1,000 ML IVC PRN (17:05)
[2021-11-30] MEDS ORDERED: Naloxone 0.4 MG/ML INJ IVP PRN (17:05)
[2021-11-30] MEDS ORDERED: D10% in Water 500 ML IVC PRN (17:05)
[2021-11-30] MEDS ORDERED: Dexmedetomidine HCl 400 MCG/100 ML MLS IVC SCH (17:05)
[2021-11-30] MEDS ORDERED: *HR* Dextrose 50 % in Water (Syg) 50 ML SYRINGE IVP PRN (17:05)
[2021-11-30] MEDS: D5% in Lactated Ringers 1,000 ML IVC SCH (17:21)
[2021-11-30] MEDS: Ipratropium/Albuterol Neb 3 ML IH SCH ×2 (19:55→23:47)
[2021-11-30] MEDS ORDERED: Latanoprost 2.5 ML BOTTLE BOTH EYES SCH (21:00)
[2021-11-30] MEDS ORDERED: *HR* Metoprolol 5 MG/5 ML VIAL IVP ONE (23:08)
[2021-12-01] MEDS: Insulin LISPRO 300 UNITS/3 ML VIAL SUBQ SCH ×6 (00:06→19:55)
[2021-12-01 02:49] LABS: BUN/Creatinine Ratio 81 (6-26); Blood Urea Nitrogen 84 mg/dL (6-20); Calcium 11.7 mg/dL (8.6-10.3); Carbon Dioxide 18 mEq/L (23-29); Chloride 125 mEq/L (98-107); Glucose 123 mg/dL (70-105); Magnesium 2.3 mg/dL (1.6-2.6); Osmolality,Calculated 341 (280-300); Phosphorous 4.4 mg/dL (2.7-4.5); Potassium 4.8 mEq/L (3.5-5.1); Sodium 152 mEq/L (136-145); eGFR For African Americans > 60 (> 60); eGFR For Non-African Americans 55 (> 60)
[2021-12-01] MEDS: Ipratropium/Albuterol Neb 3 ML IH SCH ×5 (03:45→20:47)
[2021-12-01] MEDS: D5% in Lactated Ringers 1,000 ML IVC SCH (06:04)
[2021-12-01] MEDS: Norepinephrine 4 MG/254 ML IV.SOLN IVC SCH (07:45)
[2021-12-01] MEDS: MetroNIDAZOLE 500 MG/100 ML 500 MG/100 ML BAG IVPB SCH ×2 (09:16→17:42)
[2021-12-01] MEDS: Insulin DETEMIR 100 UNIT/ML X5UNITS SUBQ SCH ×2 (09:19→19:56)
[2021-12-01] MEDS: Docusate Oral Soln 100 MG/10 ML UDC GTUBE SCH ×2 (09:19→19:56)
[2021-12-01] MEDS: Nystatin POWDER 30 GM BOTTLE TP SCH ×3 (09:20→19:55)
[2021-12-01] MEDS: Clotrimazole 1% CRM 15 GM TUBE TP SCH ×2 (09:20→19:55)
[2021-12-01] MEDS: Cefepime HCl 2,000 MG in 0.9 % Sodium Chloride Mini Bag 100 ML IVP SCH (12:33)
[2021-12-01] MEDS: *HR* Metoprolol 5 MG/5 ML VIAL IVP SCH ×2 (12:34→17:42)
[2021-12-01] MEDS ORDERED: D5% in Water 1,000 ML IVC SCH (13:30)
[2021-12-01] MEDS ORDERED: Vancomycin 1,250 MG/262.5 ML IV.SOLN IVPB SCH (17:00)
[2021-12-02] MEDS ORDERED: Naloxone 0.4 MG/ML INJ IVP PRN (00:04)
[2021-12-02] MEDS ORDERED: Dextrose Gel 15 GM/37.5 ML TUBE PO PRN ×2 (00:04)
[2021-12-02] MEDS ORDERED: D5% in Water 1,000 ML IVC PRN (00:04)
[2021-12-02] MEDS ORDERED: D10% in Water 500 ML IVC PRN (00:04)
[2021-12-02] MEDS ORDERED: D5% in Water 1,000 ML IVC SCH ×2 (00:04→12:43)
[2021-12-02] MEDS: Ipratropium/Albuterol Neb 3 ML IH SCH ×6 (00:23→20:15)
[2021-12-02] MEDS: *HR* Metoprolol 5 MG/5 ML VIAL IVP SCH ×5 (01:12→23:29)
[2021-12-02] MEDS: Insulin LISPRO 300 UNITS/3 ML VIAL SUBQ SCH ×5 (04:07→20:29)
[2021-12-02] MEDS ORDERED: Water for inj. (sterile) 10 ML ONE (05:48)
[2021-12-02] MEDS: Cefepime HCl 2,000 MG in Water for inj. (sterile) 20 ML IVP SCH ×2 (05:56→17:34)
[2021-12-02] MEDS: MetroNIDAZOLE 500 MG/100 ML 500 MG/100 ML BAG IVPB SCH ×4 (08:08→23:30)
[2021-12-02] MEDS: Clotrimazole 1% CRM 15 GM TUBE TP SCH ×2 (08:09→20:32)
[2021-12-02] MEDS: Nystatin POWDER 30 GM BOTTLE TP SCH ×3 (08:10→20:33)
[2021-12-02] MEDS: Insulin DETEMIR 100 UNIT/ML X5UNITS SUBQ SCH ×2 (08:15→22:12)
[2021-12-02] MEDS: Docusate Oral Soln 100 MG/10 ML UDC GTUBE SCH ×2 (08:31→20:30)
[2021-12-02 09:32] LABS: Basophils % 0.2 %; Eosinophils # 0.2 K/mcL (0.0-0.6); Eosinophils % 1.5 %; Hemoglobin 10.2 g/dL (11.5-15.4); Immature Granulocytes % 0.9 % (0-4); Immature Platelets 9.6 % (1.1-6.1); Lymphocytes # 1.5 K/mcL (0.6-4.6); Lymphocytes % 9.6 %; Mean Corpuscular HGB Conc 31.9 g/dL (31.6-35.5); Mean Corpuscular Hemoglobin 34.7 pg (28.0-33.3); Mean Corpuscular Volume 108.8 fL (83.0-100.0); Mean Platelet Volume 13.7 fL (9.4-12.4); Monocytes # 0.5 K/mcL (0.0-1.3); Monocytes % 3.3 %; Nucleated Red Blood Cells 0.1 /100 WBC (0); Red Blood Count 2.94 M/mcL (3.82-4.97); Red Cell Distribution Width 18.1 % (11.5-14.5); Segmented Neutrophils % 84.5 %; White Blood Count 15.8 K/mcL (4.3-11.1)
[2021-12-02 09:33] LABS: Neutrophils # 13.4 K/mcL (1.6-8.9); Platelet Count 99 K/mcL (140-400)
[2021-12-02 09:37] LABS: Alanine Aminotransferase 139 Units/L (7-52); Albumin 2.4 g/dL (3.5-5.7); Albumin/Globulin Ratio 0.7 (1.1-2.2); Alkaline Phosphatase 216 Units/L (34-104); Aspartate Amino Transferase 120 Units/L (13-39); BUN/Creatinine Ratio 73 (6-26); Bilirubin,Total 2.8 mg/dL (0.3-1.0); Blood Urea Nitrogen 73 mg/dL (6-20); Calcium 11.6 mg/dL (8.6-10.3); Carbon Dioxide 20 mEq/L (23-29); Chloride 129 mEq/L (98-107); Globulin 3.6 g/dL (2.4-3.5); Glucose 123 mg/dL (70-105); Magnesium 2.1 mg/dL (1.6-2.6); Osmolality,Calculated 345 (280-300); Phosphorous 3.5 mg/dL (2.7-4.5); Potassium 4.3 mEq/L (3.5-5.1); Sodium 156 mEq/L (136-145); eGFR For African Americans > 60 (> 60); eGFR For Non-African Americans 58 (> 60)
[2021-12-02] MEDS: Cefepime HCl 2,000 MG in 0.9 % Sodium Chloride Mini Bag 100 ML IVP SCH (14:00)
[2021-12-02] MEDS ORDERED: Furosemide 40 MG/4 ML VIAL IVP ONE (21:29)
[2021-12-02] MEDS: Albumin 25% 25gram/100mL 25 GM/100 ML IV.SOLN IVC SCH ×2 (21:48→23:27)
[2021-12-03] MEDS: Ipratropium/Albuterol Neb 3 ML IH SCH (00:04)
[2021-12-03] MEDS: Acetylcysteine 10% 2 ML INHSOL IH SCH ×5 (00:05→19:49)
[2021-12-03] MEDS: Insulin LISPRO 300 UNITS/3 ML VIAL SUBQ SCH ×7 (00:15→23:58)
[2021-12-03] MEDS: Albumin 25% 25gram/100mL 25 GM/100 ML IV.SOLN IVC SCH ×2 (00:50→02:36)
[2021-12-03] MEDS ORDERED: Furosemide 40 MG/4 ML VIAL ONE (03:37)
[2021-12-03] MEDS: Levalbuterol Neb 1.25 MG/3 ML IH SCH ×4 (04:17→19:49)
[2021-12-03] MEDS: *HR* Metoprolol 5 MG/5 ML VIAL IVP SCH ×4 (05:30→23:48)
[2021-12-03] MEDS: Docusate Oral Soln 100 MG/10 ML UDC GTUBE SCH ×2 (08:10→20:22)
[2021-12-03] MEDS: Insulin DETEMIR 100 UNIT/ML X5UNITS SUBQ SCH ×2 (08:12→20:22)
[2021-12-03] MEDS: MetroNIDAZOLE 500 MG/100 ML 500 MG/100 ML BAG IVPB SCH ×3 (08:17→23:48)
[2021-12-03] MEDS: Clotrimazole 1% CRM 15 GM TUBE TP SCH ×2 (08:18→20:22)
[2021-12-03] MEDS: Nystatin POWDER 30 GM BOTTLE TP SCH ×3 (08:18→20:22)
[2021-12-03 10:01] LABS: Basophils % 0.2 %; Hematocrit 26.5 % (35.3-44.9); Mean Corpuscular Volume 108.6 fL (83.0-100.0); Red Blood Count 2.44 M/mcL (3.82-4.97)
[2021-12-03 10:03] LABS: Eosinophils # 0.2 K/mcL (0.0-0.6); Eosinophils % 3.2 %; Hemoglobin 8.3 g/dL (11.5-15.4); Immature Granulocytes % 0.8 % (0-4); Immature Platelets 8.3 % (1.1-6.1); Lymphocytes # 1.1 K/mcL (0.6-4.6); Lymphocytes % 17.5 %; Mean Corpuscular HGB Conc 31.3 g/dL (31.6-35.5); Mean Platelet Volume 13.4 fL (9.4-12.4); Monocytes # 0.3 K/mcL (0.0-1.3); Monocytes % 4.1 %; Neutrophils # 4.8 K/mcL (1.6-8.9); Red Cell Distribution Width 18.4 % (11.5-14.5); Segmented Neutrophils % 74.2 %; White Blood Count 6.5 K/mcL (4.3-11.1)
[2021-12-03 10:07] LABS: Platelet Count 67 K/mcL (140-400)
[2021-12-03 10:18] LABS: Alanine Aminotransferase 93 Units/L (7-52); Albumin 3.4 g/dL (3.5-5.7); Albumin/Globulin Ratio 1.4 (1.1-2.2); Alkaline Phosphatase 207 Units/L (34-104); Aspartate Amino Transferase 67 Units/L (13-39); BUN/Creatinine Ratio 61 (6-26); Bilirubin,Direct 1.4 mg/dL (0.0-0.2); Bilirubin,Indirect 1.5 mg/dL (0.0-1.0); Bilirubin,Total 2.9 mg/dL (0.3-1.0); Blood Urea Nitrogen 63 mg/dL (6-20); Carbon Dioxide 20 mEq/L (23-29); Chloride 129 mEq/L (98-107); Globulin 2.5 g/dL (2.4-3.5); Glucose 82 mg/dL (70-105); Osmolality,Calculated 343 (280-300); Potassium 3.8 mEq/L (3.5-5.1); Sodium 158 mEq/L (136-145); Total Protein 5.9 g/dL (6.4-8.9); eGFR For African Americans > 60 (> 60); eGFR For Non-African Americans 55 (> 60)
[2021-12-03] MEDS ORDERED: Cefepime HCl 2,000 MG in Water for inj. (sterile) 20 ML IVP SCH (16:00)
[2021-12-03] MEDS: Cefepime HCl 2,000 MG in 0.9 % Sodium Chloride Mini Bag 100 ML IVPB SCH (16:59)
[2021-12-03] MEDS ORDERED: Acetaminophen IV 1,000 MG/100 ML BAG IVPB ONE (17:15)
[2021-12-03 19:55] LABS: ABG Base Excess -2 mEq/L (-2 to 3); ABG HCO3 20 mEq/L (21-27); ABG Oxygen Saturation 94 % (95-98); ABG PCO2 22 mmHg (35-45); ABG PH 7.57 pH Units (7.32-7.45); ABG PO2 59 mmHg (85-104); ABG TCO2 21 mEq/L (20-26)
[2021-12-03] MEDS ORDERED: Morphine Sulfate 2 MG/ML SYRINGE IVP ONE (19:57)
[2021-12-03] MEDS ORDERED: Isovue-370 500 ML BOTTLE IVP ONE (20:33)
[2021-12-04] MEDS: Cefepime HCl 2,000 MG in 0.9 % Sodium Chloride Mini Bag 100 ML IVPB SCH ×3 (00:58→16:37)
[2021-12-04] MEDS: Levalbuterol Neb 1.25 MG/3 ML IH SCH ×4 (04:11→20:16)
[2021-12-04] MEDS: Acetylcysteine 10% 2 ML INHSOL IH SCH ×4 (04:11→20:16)
[2021-12-04] MEDS: Insulin LISPRO 300 UNITS/3 ML VIAL SUBQ SCH ×6 (04:58→23:44)
[2021-12-04] MEDS: *HR* Metoprolol 5 MG/5 ML VIAL IVP SCH ×4 (05:15→23:44)
[2021-12-04 06:09] LABS: Basophils % 0.2 %; Immature Granulocytes % 0.8 % (0-4); Mean Platelet Volume 13.7 fL (9.4-12.4); Red Cell Distribution Width 19.1 % (11.5-14.5)
[2021-12-04 06:11] LABS: Eosinophils # 0.2 K/mcL (0.0-0.6); Eosinophils % 3.5 %; Hematocrit 26.3 % (35.3-44.9); Hemoglobin 8.3 g/dL (11.5-15.4); Immature Platelets 11.1 % (1.1-6.1); Lymphocytes # 1.1 K/mcL (0.6-4.6); Lymphocytes % 17.2 %; Mean Corpuscular HGB Conc 31.6 g/dL (31.6-35.5); Mean Corpuscular Hemoglobin 34.7 pg (28.0-33.3); Monocytes # 0.3 K/mcL (0.0-1.3); Monocytes % 4.2 %; Neutrophils # 4.9 K/mcL (1.6-8.9); Red Blood Count 2.39 M/mcL (3.82-4.97); Segmented Neutrophils % 74.1 %; White Blood Count 6.6 K/mcL (4.3-11.1)
[2021-12-04 06:26] LABS: BUN/Creatinine Ratio 53 (6-26); Blood Urea Nitrogen 57 mg/dL (6-20); Calcium 10.9 mg/dL (8.6-10.3); Carbon Dioxide 22 mEq/L (23-29); Chloride 135 mEq/L (98-107); Glucose 132 mg/dL (70-105); Magnesium 2.1 mg/dL (1.6-2.6); Osmolality,Calculated 352 (280-300); Phosphorous 3.4 mg/dL (2.7-4.5); Potassium 3.9 mEq/L (3.5-5.1); Sodium 162 mEq/L (136-145); eGFR For African Americans > 60 (> 60); eGFR For Non-African Americans 53 (> 60)
[2021-12-04 07:32] LABS: Platelet Count 72 K/mcL (140-400)
[2021-12-04] MEDS: Insulin DETEMIR 100 UNIT/ML X5UNITS SUBQ SCH ×2 (08:10→20:16)
[2021-12-04] MEDS: Docusate Oral Soln 100 MG/10 ML UDC GTUBE SCH ×2 (08:18→20:14)
[2021-12-04] MEDS: MetroNIDAZOLE 500 MG/100 ML 500 MG/100 ML BAG IVPB SCH ×3 (08:19→23:43)
[2021-12-04] MEDS: Nystatin POWDER 30 GM BOTTLE TP SCH ×3 (08:19→20:15)
[2021-12-04] MEDS: Clotrimazole 1% CRM 15 GM TUBE TP SCH ×2 (08:27→20:15)
[2021-12-04] MEDS: *HR* LORazepam 2 MG/ML VIAL IVP PRN ×2 (09:23→18:20)
[2021-12-04] MEDS: *HR* HYDROmorphone (PF) 1 MG/ML SYRINGE IVP PRN ×2 (09:24→14:26)
[2021-12-04] MEDS: D5% in Water 1,000 ML IVC SCH ×2 (09:24→23:09)
[2021-12-04 10:10] LABS: Sodium 160 mEq/L (136-145); Vancomycin,Random 8 mcg/mL
[2021-12-04 13:08] LABS: BUN/Creatinine Ratio 53 (6-26); Blood Urea Nitrogen 58 mg/dL (6-20); Calcium 10.6 mg/dL (8.6-10.3); Carbon Dioxide 21 mEq/L (23-29); Chloride 134 mEq/L (98-107); Glucose 148 mg/dL (70-105); Osmolality,Calculated 351 (280-300); Potassium 3.9 mEq/L (3.5-5.1); Sodium 161 mEq/L (136-145); eGFR For African Americans > 60 (> 60); eGFR For Non-African Americans 52 (> 60)
[2021-12-04] MEDS ORDERED: Acetaminophen 325 MG TABLET PO PRN (16:18)
[2021-12-04 17:37] LABS: Calcium 8.5 mg/dL (8.6-10.3); Potassium 3.4 mEq/L (3.5-5.1)
[2021-12-04] MEDS ORDERED: *HR* FentaNYL (PF) 100 MCG/2 ML VIAL IVP ONE (21:22)
[2021-12-05] MEDS: Cefepime HCl 2,000 MG in 0.9 % Sodium Chloride Mini Bag 100 ML IVPB SCH ×3 (00:35→16:09)
[2021-12-05] MEDS: *HR* HYDROmorphone (PF) 1 MG/ML SYRINGE IVP PRN ×2 (00:35→08:31)
[2021-12-05] MEDS: Levalbuterol Neb 1.25 MG/3 ML IH SCH ×4 (04:13→20:19)
[2021-12-05] MEDS: Insulin LISPRO 300 UNITS/3 ML VIAL SUBQ SCH ×5 (04:25→20:25)
[2021-12-05] MEDS: *HR* Metoprolol 5 MG/5 ML VIAL IVP SCH ×4 (05:32→22:50)
[2021-12-05 05:33] LABS: Potassium 4.2 mEq/L (3.5-5.1)
[2021-12-05] MEDS: *HR* LORazepam 2 MG/ML VIAL IVP PRN (06:05)
[2021-12-05 07:08] LABS: Basophils % 0.2 %; Eosinophils # 0.2 K/mcL (0.0-0.6); Eosinophils % 2.7 %; Hematocrit 28.1 % (35.3-44.9); Hemoglobin 8.3 g/dL (11.5-15.4); Immature Granulocytes % 0.8 % (0-4); Immature Platelets 12.9 % (1.1-6.1); Lymphocytes # 1.6 K/mcL (0.6-4.6); Lymphocytes % 18.4 %; Mean Corpuscular HGB Conc 29.5 g/dL (31.6-35.5); Mean Corpuscular Hemoglobin 33.6 pg (28.0-33.3); Mean Corpuscular Volume 113.8 fL (83.0-100.0); Mean Platelet Volume 13.5 fL (9.4-12.4); Monocytes # 0.4 K/mcL (0.0-1.3); Monocytes % 5.1 %; Neutrophils # 6.2 K/mcL (1.6-8.9); Nucleated Red Blood Cells 0.2 /100 WBC (0); Red Blood Count 2.47 M/mcL (3.82-4.97); Red Cell Distribution Width 19.9 % (11.5-14.5); Segmented Neutrophils % 72.8 %; White Blood Count 8.5 K/mcL (4.3-11.1)
[2021-12-05 07:12] LABS: Platelet Count 65 K/mcL (140-400)
[2021-12-05 08:08] LABS: Macrocytosis Present (Not Present); Platelet Estimate Decreased (Normal); Target Cells 1+ (Not Present)
[2021-12-05] MEDS: Docusate Oral Soln 100 MG/10 ML UDC GTUBE SCH ×2 (08:25→20:26)
[2021-12-05 08:40] LABS: ABG Base Excess -5 mEq/L (-2 to 3); ABG HCO3 20 mEq/L (21-27); ABG Oxygen Saturation 95 % (95-98); ABG PCO2 31 mmHg (35-45); ABG PH 7.41 pH Units (7.32-7.45); ABG PO2 75 mmHg (85-104); ABG TCO2 21 mEq/L (20-26)
[2021-12-05] MEDS ORDERED: Furosemide 40 MG/4 ML VIAL ONE (10:37)
[2021-12-05] MEDS ORDERED: *HR* FentaNYL (PF) 100 MCG/2 ML VIAL ONE (11:04)
[2021-12-05] MEDS ORDERED: FentaNYL (PF) 1,000 MCG/100 ML IV.SOLN ONE (11:17)
[2021-12-05] MEDS: Norepinephrine 4 MG/254 ML IV.SOLN IVC SCH ×2 (11:51→20:34)
[2021-12-05 12:07] LABS: ABG Base Excess -7 mEq/L (-2 to 3); ABG HCO3 19 mEq/L (21-27); ABG Oxygen Saturation 100 % (95-98); ABG PCO2 35 mmHg (35-45); ABG PH 7.33 pH Units (7.32-7.45); ABG PO2 253 mmHg (85-104); ABG TCO2 20 mEq/L (20-26); Blood Gas Modality ASSIST CONTROL; Blood Gas VT 450 cc
[2021-12-05] MEDS: FentaNYL (PF) 1,000 MCG/100 ML IV.SOLN IVC SCH (12:58)
[2021-12-05] MEDS: MetroNIDAZOLE 500 MG/100 ML 500 MG/100 ML BAG IVPB SCH ×3 (14:08→23:02)
[2021-12-05] MEDS: Insulin DETEMIR 100 UNIT/ML X5UNITS SUBQ SCH ×2 (14:08→20:25)
[2021-12-05] MEDS: Clotrimazole 1% CRM 15 GM TUBE TP SCH ×2 (14:09→20:26)
[2021-12-05] MEDS: Nystatin POWDER 30 GM BOTTLE TP SCH ×3 (14:09→20:26)
[2021-12-05] MEDS ORDERED: Artificial Tears SOLN 15 ML BOTTLE BOTH EYES PRN (14:18)
[2021-12-05] MEDS ORDERED: *HR* Midazolam HCl 2 MG/2 ML VIAL IVP ONE (14:28)
[2021-12-05] MEDS ORDERED: *HR* Etomidate 20 MG/10 ML AMPUL IVP ONE (14:28)
[2021-12-05] MEDS: Dexmedetomidine HCl 400 MCG/100 ML MLS IVC SCH ×2 (14:30→19:18)
[2021-12-05] MEDS: Artificial Tears SOLN 15 ML BOTTLE BOTH EYES SCH ×3 (16:08→23:02)
[2021-12-05] MEDS: Chlorhexidine Rinse 15 ML MOUTHWASH MM SCH (20:26)
[2021-12-06] MEDS: Cefepime HCl 2,000 MG in 0.9 % Sodium Chloride Mini Bag 100 ML IVPB SCH ×3 (00:18→16:11)
[2021-12-06] MEDS: Insulin LISPRO 300 UNITS/3 ML VIAL SUBQ SCH ×7 (01:16→23:44)
[2021-12-06] MEDS: FentaNYL (PF) 1,000 MCG/100 ML IV.SOLN IVC SCH ×3 (01:17→18:52)
[2021-12-06] MEDS: Dexmedetomidine HCl 400 MCG/100 ML MLS IVC SCH ×3 (01:18→18:52)
[2021-12-06 03:50] LABS: Segmented Neutrophils % 57.7 %
[2021-12-06 03:52] LABS: Basophils % 0.3 %; Eosinophils # 0.3 K/mcL (0.0-0.6); Eosinophils % 4.3 %; Hematocrit 25.3 % (35.3-44.9); Hemoglobin 7.4 g/dL (11.5-15.4); Immature Platelets 11.7 % (1.1-6.1); Lymphocytes % 29.1 %; Mean Corpuscular HGB Conc 29.2 g/dL (31.6-35.5); Mean Corpuscular Hemoglobin 33.9 pg (28.0-33.3); Mean Corpuscular Volume 116.1 fL (83.0-100.0); Mean Platelet Volume 14.2 fL (9.4-12.4); Monocytes # 0.6 K/mcL (0.0-1.3); Monocytes % 7.6 %; Neutrophils # 4.3 K/mcL (1.6-8.9); Nucleated Red Blood Cells 0.3 /100 WBC (0); Red Blood Count 2.18 M/mcL (3.82-4.97); Red Cell Distribution Width 20.2 % (11.5-14.5); White Blood Count 7.4 K/mcL (4.3-11.1)
[2021-12-06 03:56] LABS: Lymphocytes # 2.2 K/mcL (0.6-4.6); Platelet Count 64 K/mcL (140-400)
[2021-12-06 04:06] LABS: VBG Ionized Calcium 1.24 mmol/L (1.15-1.35)
[2021-12-06] MEDS: Levalbuterol Neb 1.25 MG/3 ML IH SCH ×4 (04:12→20:57)
[2021-12-06 04:13] LABS: Calcium 7.9 mg/dL (8.6-10.3); Magnesium 1.6 mg/dL (1.6-2.6); Phosphorous 2.6 mg/dL (2.7-4.5); Potassium 3.8 mEq/L (3.5-5.1)
[2021-12-06 04:31] LABS: ABG Base Excess -6 mEq/L (-2 to 3); ABG HCO3 19 mEq/L (21-27); ABG Oxygen Saturation 99 % (95-98); ABG PCO2 36 mmHg (35-45); ABG PH 7.33 pH Units (7.32-7.45); ABG PO2 145 mmHg (85-104); ABG TCO2 20 mEq/L (20-26); Blood Gas VT 450 cc
[2021-12-06] MEDS: Norepinephrine 4 MG/254 ML IV.SOLN IVC SCH ×2 (04:32→11:09)
[2021-12-06] MEDS: Artificial Tears SOLN 15 ML BOTTLE BOTH EYES SCH ×6 (04:34→23:43)
[2021-12-06] MEDS: *HR* Metoprolol 5 MG/5 ML VIAL IVP SCH ×4 (04:34→23:44)
[2021-12-06 04:58] LABS: Platelet Estimate Decreased (Normal)
[2021-12-06] MEDS ORDERED: Lactulose Oral Soln 20 GM/30 ML UDC GTUBE ONE (06:28)
[2021-12-06] MEDS ORDERED: 0.9 % Sodium Chloride 250 ML ONE (07:41)
[2021-12-06] MEDS: Chlorhexidine Rinse 15 ML MOUTHWASH MM SCH ×2 (08:39→20:24)
[2021-12-06] MEDS: MetroNIDAZOLE 500 MG/100 ML 500 MG/100 ML BAG IVPB SCH ×3 (08:39→23:43)
[2021-12-06] MEDS: Docusate Oral Soln 100 MG/10 ML UDC GTUBE SCH ×2 (08:40→20:24)
[2021-12-06] MEDS: Nystatin POWDER 30 GM BOTTLE TP SCH ×3 (08:59→21:18)
[2021-12-06] MEDS: Insulin DETEMIR 100 UNIT/ML X5UNITS SUBQ SCH ×2 (08:59→20:26)
[2021-12-06] MEDS: Clotrimazole 1% CRM 15 GM TUBE TP SCH ×2 (08:59→21:18)
[2021-12-06 10:07] LABS: INR 2.1; Prothrombin Time 23.8 Seconds (9.4-12.1)
[2021-12-06 10:09] LABS: Activated Partial Thrombo Time 40.3 Seconds (26.0-36.0)
[2021-12-06] MEDS ORDERED: Argatroban 250 MG in 0.9 % Sodium Chloride 250 ML IVC SCH (11:45)
[2021-12-06 12:41] LABS: Albumin 2.9 g/dL (3.5-5.7); Albumin/Globulin Ratio 1.5 (1.1-2.2); Bilirubin,Direct 0.1 mg/dL (0.0-0.2); Bilirubin,Indirect 0.3 mg/dL (0.0-1.0); Bilirubin,Total 0.4 mg/dL (0.3-1.0); Total Protein 4.9 g/dL (6.4-8.9)
[2021-12-07] MEDS: Cefepime HCl 2,000 MG in 0.9 % Sodium Chloride Mini Bag 100 ML IVPB SCH ×3 (01:21→20:41)
[2021-12-07] MEDS: Dexmedetomidine HCl 400 MCG/100 ML MLS IVC SCH ×3 (03:01→21:06)
[2021-12-07 04:06] LABS: Immature Granulocytes % 0.9 % (0-4)
[2021-12-07 04:08] LABS: Basophils % 0.2 %; Eosinophils # 0.2 K/mcL (0.0-0.6); Eosinophils % 3.1 %; Hematocrit 25.5 % (35.3-44.9); Hemoglobin 7.5 g/dL (11.5-15.4); Immature Platelets 12.9 % (1.1-6.1); Mean Corpuscular HGB Conc 29.4 g/dL (31.6-35.5); Mean Corpuscular Hemoglobin 33.5 pg (28.0-33.3); Mean Corpuscular Volume 113.8 fL (83.0-100.0); Mean Platelet Volume 14.2 fL (9.4-12.4); Monocytes # 0.4 K/mcL (0.0-1.3); Monocytes % 5.8 %; Neutrophils # 4.5 K/mcL (1.6-8.9); Red Blood Count 2.24 M/mcL (3.82-4.97); Red Cell Distribution Width 20.4 % (11.5-14.5); White Blood Count 6.6 K/mcL (4.3-11.1)
[2021-12-07 04:09] LABS: Lymphocytes # 1.5 K/mcL (0.6-4.6); Platelet Count 52 K/mcL (140-400)
[2021-12-07 04:25] LABS: Magnesium 2.3 mg/dL (1.6-2.6)
[2021-12-07 04:26] LABS: Albumin 2.1 g/dL (3.5-5.7); Albumin/Globulin Ratio 0.9 (1.1-2.2); Bilirubin,Direct 1.8 mg/dL (0.0-0.2); Bilirubin,Indirect 1.1 mg/dL (0.0-1.0); Bilirubin,Total 2.9 mg/dL (0.3-1.0); Globulin 2.4 g/dL (2.4-3.5); Total Protein 4.5 g/dL (6.4-8.9)
[2021-12-07 04:27] LABS: Anisocytosis 1+ (Not Present); Calcium 9.6 mg/dL (8.6-10.3); Platelet Estimate Decreased (Normal); Potassium 4.6 mEq/L (3.5-5.1); Reactive Lymphocytes Present (Not Present)
[2021-12-07] MEDS: Insulin LISPRO 300 UNITS/3 ML VIAL SUBQ SCH ×5 (04:40→20:45)
[2021-12-07] MEDS: *HR* Metoprolol 5 MG/5 ML VIAL IVP SCH ×3 (04:40→16:15)
[2021-12-07] MEDS: Artificial Tears SOLN 15 ML BOTTLE BOTH EYES SCH ×5 (04:40→20:41)
[2021-12-07] MEDS: Levalbuterol Neb 1.25 MG/3 ML IH SCH ×4 (04:45→20:11)
[2021-12-07 05:09] LABS: ABG Base Excess -8 mEq/L (-2 to 3); ABG HCO3 17 mEq/L (21-27); ABG Oxygen Saturation 97 % (95-98); ABG PCO2 31 mmHg (35-45); ABG PH 7.35 pH Units (7.32-7.45); ABG PO2 92 mmHg (85-104); ABG TCO2 18 mEq/L (20-26); Blood Gas Modality ASSIST CONTROL; Blood Gas VT 450 cc
[2021-12-07] MEDS: FentaNYL (PF) 1,000 MCG/100 ML IV.SOLN IVC SCH ×2 (05:13→15:32)
[2021-12-07 05:56] LABS: Activated Partial Thrombo Time 124.9 Seconds (26.0-36.0)
[2021-12-07] MEDS: Norepinephrine 4 MG/254 ML IV.SOLN IVC SCH (06:29)
[2021-12-07] MEDS: Chlorhexidine Rinse 15 ML MOUTHWASH MM SCH ×2 (08:26→20:41)
[2021-12-07] MEDS: Nystatin POWDER 30 GM BOTTLE TP SCH ×3 (08:26→20:42)
[2021-12-07] MEDS: Clotrimazole 1% CRM 15 GM TUBE TP SCH ×2 (08:27→20:42)
[2021-12-07] MEDS: Docusate Oral Soln 100 MG/10 ML UDC GTUBE SCH ×2 (08:27→20:41)
[2021-12-07] MEDS: MetroNIDAZOLE 500 MG/100 ML 500 MG/100 ML BAG IVPB SCH ×2 (08:28→16:14)
[2021-12-07] MEDS: Insulin DETEMIR 100 UNIT/ML X5UNITS SUBQ SCH ×2 (08:29→22:29)
[2021-12-07] MEDS ORDERED: D5% in Water 1,000 ML IVC SCH (08:45)
[2021-12-07 12:30] LABS: Calcium 9.7 mg/dL (8.6-10.3); Potassium 4.5 mEq/L (3.5-5.1)
[2021-12-07 17:05] LABS: Hematocrit 26.5 % (35.3-44.9); Immature Platelets 13.8 % (1.1-6.1); Mean Corpuscular HGB Conc 30.2 g/dL (31.6-35.5); Mean Corpuscular Hemoglobin 33.8 pg (28.0-33.3); Mean Corpuscular Volume 111.8 fL (83.0-100.0); Mean Platelet Volume 13.2 fL (9.4-12.4); Red Blood Count 2.37 M/mcL (3.82-4.97); Red Cell Distribution Width 20.2 % (11.5-14.5); White Blood Count 6.3 K/mcL (4.3-11.1)
[2021-12-07 17:11] LABS: Platelet Count 56 K/mcL (140-400)
[2021-12-07 17:21] LABS: Potassium 4.4 mEq/L (3.5-5.1)
[2021-12-07 17:59] LABS: Eosinophils # 0.1 K/mcL (0.0-0.6); Hypochromasia Present (Not Present); Lymphocytes # 1.5 K/mcL (0.6-4.6); Macrocytosis Present (Not Present); Monocytes # 0.6 K/mcL (0.0-1.3); Platelet Estimate Decreased (Normal)
[2021-12-07 18:00] LABS: Large Platelets Present (Not Present); Polychromasia 1+ (Not Present)
[2021-12-07 21:15] LABS: Calcium 9.2 mg/dL (8.6-10.3); Potassium 4.3 mEq/L (3.5-5.1)
[2021-12-08] MEDS: Artificial Tears SOLN 15 ML BOTTLE BOTH EYES SCH ×6 (00:08→21:15)
[2021-12-08] MEDS: MetroNIDAZOLE 500 MG/100 ML 500 MG/100 ML BAG IVPB SCH ×3 (00:09→16:41)
[2021-12-08] MEDS: *HR* Metoprolol 5 MG/5 ML VIAL IVP SCH ×4 (00:09→14:59)
[2021-12-08] MEDS: Insulin LISPRO 300 UNITS/3 ML VIAL SUBQ SCH ×6 (00:09→21:10)
[2021-12-08] MEDS: FentaNYL (PF) 1,000 MCG/100 ML IV.SOLN IVC SCH (02:41)
[2021-12-08] MEDS: Levalbuterol Neb 1.25 MG/3 ML IH SCH ×4 (03:34→20:38)
[2021-12-08 04:15] LABS: Hematocrit 26.7 % (35.3-44.9); Hemoglobin 7.8 g/dL (11.5-15.4); Lymphocytes # 1.4 K/mcL (0.6-4.6); Mean Corpuscular HGB Conc 29.2 g/dL (31.6-35.5); Mean Corpuscular Hemoglobin 33.5 pg (28.0-33.3); Mean Corpuscular Volume 114.6 fL (83.0-100.0); Mean Platelet Volume 14.8 fL (9.4-12.4); Nucleated Red Blood Cells 0.3 /100 WBC (0); Platelet Count 52 K/mcL (140-400); Red Blood Count 2.33 M/mcL (3.82-4.97); Red Cell Distribution Width 20.4 % (11.5-14.5); White Blood Count 6.9 K/mcL (4.3-11.1)
[2021-12-08 04:33] LABS: Calcium 9.7 mg/dL (8.6-10.3); Potassium 4.4 mEq/L (3.5-5.1)
[2021-12-08 04:43] LABS: Anisocytosis 2+ (Not Present); Hypochromasia Present (Not Present); Microcytosis Present (Not Present); Monocytes # 0.7 K/mcL (0.0-1.3); Neutrophils # 4.8 K/mcL (1.6-8.9); Platelet Estimate Decreased (Normal)
[2021-12-08 04:45] LABS: ABG Base Excess -9 mEq/L (-2 to 3); ABG HCO3 16 mEq/L (21-27); ABG Oxygen Saturation 98 % (95-98); ABG PCO2 29 mmHg (35-45); ABG PH 7.34 pH Units (7.32-7.45); ABG PO2 106 mmHg (85-104); ABG TCO2 16 mEq/L (20-26); Blood Gas VT 450 cc
[2021-12-08] MEDS: Dexmedetomidine HCl 400 MCG/100 ML MLS IVC SCH ×2 (05:39→21:13)
[2021-12-08] MEDS: Nystatin POWDER 30 GM BOTTLE TP SCH ×3 (08:04→21:16)
[2021-12-08] MEDS: Clotrimazole 1% CRM 15 GM TUBE TP SCH ×2 (08:05→21:16)
[2021-12-08] MEDS: Chlorhexidine Rinse 15 ML MOUTHWASH MM SCH ×2 (08:05→21:16)
[2021-12-08] MEDS: Docusate Oral Soln 100 MG/10 ML UDC GTUBE SCH ×2 (08:05→21:16)
[2021-12-08] MEDS: Cefepime HCl 2,000 MG in 0.9 % Sodium Chloride Mini Bag 100 ML IVPB SCH ×2 (08:05→21:15)
[2021-12-08] MEDS: Insulin DETEMIR 100 UNIT/ML X5UNITS SUBQ SCH ×2 (08:06→21:11)
[2021-12-08] MEDS ORDERED: D5% in Water 1,000 ML IVC SCH (10:15)
[2021-12-08 14:36] LABS: Amorphous Sediment,Urine Few per hpf (None-Few); Bacteria,Urine Few per hpf (None-Few); Bilirubin,Urine Negative (Negative); Blood,Urine Large (Negative); Clarity,Urine Turbid (Clear); Color,Urine Yellow (Yellow); Glucose,Urine (UA) Normal (Normal); Hyaline Casts,Urine Few per lpf (None Seen); Ketones,Urine Trace mg/dL (Negative); Leukocyte Esterase,Urine Moderate (Negative); Mucus,Urine Few per lpf (None-Few); Nitrite,Urine Negative (Negative); PH,Urine 5.5 pH Units (5.0-8.0); Protein,Urine 70 mg/dL (Neg-Trace); RBC,Urine 15-30 per hpf (0-3); Renal Epithelial Cells,Urine Few per hpf (None-Few); Squamous Epithelial Cell,Urine Few per hpf (None-Few); Urobilinogen,Urine Normal (Normal); WBC,Urine 30-50 per hpf (0-3)
[2021-12-08] MEDS: Norepinephrine 4 MG/254 ML IV.SOLN IVC SCH (16:40)
[2021-12-08] MEDS: Pantoprazole 40 MG VIAL IVP SCH (17:19)
[2021-12-08 17:25] LABS: Albumin 2.2 g/dL (3.5-5.7); Albumin/Globulin Ratio 0.8 (1.1-2.2); Bilirubin,Direct 1.2 mg/dL (0.0-0.2); Bilirubin,Total 2.2 mg/dL (0.3-1.0); Globulin 2.8 g/dL (2.4-3.5)
[2021-12-08] MEDS: Argatroban 250 MG in 0.9 % Sodium Chloride 250 ML IVC SCH (17:55)
[2021-12-08 21:06] LABS: Sodium 153 mEq/L (136-145); Vancomycin,Trough 22 mcg/mL (5-10)
[2021-12-09] MEDS: Artificial Tears SOLN 15 ML BOTTLE BOTH EYES SCH ×7 (00:29→23:31)
[2021-12-09] MEDS: Insulin LISPRO 300 UNITS/3 ML VIAL SUBQ SCH ×7 (00:30→23:47)
[2021-12-09] MEDS: *HR* Metoprolol 5 MG/5 ML VIAL IVP SCH ×5 (00:30→23:32)
[2021-12-09] MEDS: MetroNIDAZOLE 500 MG/100 ML 500 MG/100 ML BAG IVPB SCH ×4 (00:30→23:31)
[2021-12-09 03:49] LABS: Basophils % 0.2 %; Hemoglobin 8.1 g/dL (11.5-15.4); Monocytes % 6.8 %
[2021-12-09 03:50] LABS: Eosinophils # 0.2 K/mcL (0.0-0.6); Eosinophils % 1.6 %; Hematocrit 26.9 % (35.3-44.9); Immature Granulocytes % 0.9 % (0-4); Lymphocytes # 1.7 K/mcL (0.6-4.6); Lymphocytes % 17.5 %; Mean Corpuscular HGB Conc 30.1 g/dL (31.6-35.5); Mean Corpuscular Hemoglobin 33.5 pg (28.0-33.3); Mean Corpuscular Volume 111.2 fL (83.0-100.0); Monocytes # 0.7 K/mcL (0.0-1.3); Nucleated Red Blood Cells 0.2 /100 WBC (0); Red Blood Count 2.42 M/mcL (3.82-4.97); Red Cell Distribution Width 20.1 % (11.5-14.5); White Blood Count 9.6 K/mcL (4.3-11.1)
[2021-12-09 03:51] LABS: Platelet Count 63 K/mcL (140-400)
[2021-12-09 03:52] LABS: Anisocytosis 2+ (Not Present)
[2021-12-09 03:53] LABS: Hypochromasia Present (Not Present); Microcytosis Present (Not Present); Platelet Estimate Decreased (Normal)
[2021-12-09 04:09] LABS: Calcium 9.8 mg/dL (8.6-10.3)
[2021-12-09] MEDS: Levalbuterol Neb 1.25 MG/3 ML IH SCH ×4 (04:20→20:22)
[2021-12-09 04:30] LABS: ABG Base Excess -9 mEq/L (-2 to 3); ABG HCO3 15 mEq/L (21-27); ABG Oxygen Saturation 98 % (95-98); ABG PCO2 28 mmHg (35-45); ABG PH 7.35 pH Units (7.32-7.45); ABG PO2 110 mmHg (85-104); ABG TCO2 16 mEq/L (20-26); Blood Gas VT 450 cc
[2021-12-09] MEDS: *HR* LORazepam 2 MG/ML VIAL IVP PRN (04:50)
[2021-12-09] MEDS ORDERED: WATER FOR INJ IVC SCH (05:44)
[2021-12-09] MEDS ORDERED: SODIUM BICARBONATE IVC SCH (05:44)
[2021-12-09] MEDS: Pantoprazole 40 MG VIAL IVP SCH ×2 (06:07→17:30)
[2021-12-09] MEDS: Norepinephrine 4 MG/254 ML IV.SOLN IVC SCH ×3 (07:24→07:50)
[2021-12-09] MEDS: Dexmedetomidine HCl 400 MCG/100 ML MLS IVC SCH ×4 (07:34→22:16)
[2021-12-09] MEDS: Docusate Oral Soln 100 MG/10 ML UDC GTUBE SCH ×2 (07:47→19:56)
[2021-12-09] MEDS: Cefepime HCl 2,000 MG in 0.9 % Sodium Chloride Mini Bag 100 ML IVPB SCH ×2 (07:47→19:56)
[2021-12-09] MEDS: Insulin DETEMIR 100 UNIT/ML X5UNITS SUBQ SCH ×2 (07:47→19:56)
[2021-12-09] MEDS: Chlorhexidine Rinse 15 ML MOUTHWASH MM SCH ×2 (07:47→19:55)
[2021-12-09] MEDS: Clotrimazole 1% CRM 15 GM TUBE TP SCH ×2 (07:51→19:57)
[2021-12-09] MEDS: Nystatin POWDER 30 GM BOTTLE TP SCH ×3 (07:52→19:57)
[2021-12-09 13:25] LABS: Calcium 9.7 mg/dL (8.6-10.3); Potassium 4.2 mEq/L (3.5-5.1)
[2021-12-09] MEDS: D5% in Water 1,000 ML IVC SCH (15:29)
[2021-12-09] MEDS: Argatroban 250 MG in 0.9 % Sodium Chloride 250 ML IVC SCH (16:11)
[2021-12-10] MEDS: Dexmedetomidine HCl 400 MCG/100 ML MLS IVC SCH ×5 (02:19→20:15)
[2021-12-10] MEDS: Levalbuterol Neb 1.25 MG/3 ML IH SCH ×4 (03:13→20:15)
[2021-12-10] MEDS: *HR* Metoprolol 5 MG/5 ML VIAL IVP SCH ×4 (03:38→23:49)
[2021-12-10] MEDS: Artificial Tears SOLN 15 ML BOTTLE BOTH EYES SCH ×6 (03:38→23:45)
[2021-12-10 03:44] LABS: Basophils % 0.2 %; Eosinophils # 0.3 K/mcL (0.0-0.6); Eosinophils % 2.5 %; Hematocrit 23.6 % (35.3-44.9); Hemoglobin 7.4 g/dL (11.5-15.4); Immature Granulocytes % 0.6 % (0-4); Lymphocytes # 2.1 K/mcL (0.6-4.6); Lymphocytes % 19.7 %; Mean Corpuscular HGB Conc 31.4 g/dL (31.6-35.5); Mean Corpuscular Hemoglobin 33.9 pg (28.0-33.3); Mean Corpuscular Volume 108.3 fL (83.0-100.0); Monocytes # 0.6 K/mcL (0.0-1.3); Neutrophils # 7.5 K/mcL (1.6-8.9); Nucleated Red Blood Cells 0.3 /100 WBC (0); Red Blood Count 2.18 M/mcL (3.82-4.97); White Blood Count 10.5 K/mcL (4.3-11.1)
[2021-12-10 03:45] LABS: Platelet Count 62 K/mcL (140-400)
[2021-12-10 03:48] LABS: ABG Base Excess -11 mEq/L (-2 to 3); ABG HCO3 12 mEq/L (21-27); ABG Oxygen Saturation 95 % (95-98); ABG PCO2 19 mmHg (35-45); ABG PH 7.43 pH Units (7.32-7.45); ABG PO2 69 mmHg (85-104); ABG TCO2 13 mEq/L (20-26); Blood Gas VT 450 cc
[2021-12-10] MEDS: Norepinephrine 4 MG/254 ML IV.SOLN IVC SCH ×2 (04:06→10:12)
[2021-12-10] MEDS: Insulin LISPRO 300 UNITS/3 ML VIAL SUBQ SCH ×5 (04:43→19:50)
[2021-12-10] MEDS: D5% in Water 1,000 ML IVC SCH ×2 (04:54→15:43)
[2021-12-10] MEDS: Pantoprazole 40 MG VIAL IVP SCH ×2 (06:07→17:01)
[2021-12-10] MEDS: Docusate Oral Soln 100 MG/10 ML UDC GTUBE SCH ×2 (08:10→19:51)
[2021-12-10] MEDS: Chlorhexidine Rinse 15 ML MOUTHWASH MM SCH ×2 (08:10→19:50)
[2021-12-10] MEDS: MetroNIDAZOLE 500 MG/100 ML 500 MG/100 ML BAG IVPB SCH ×3 (08:11→23:49)
[2021-12-10] MEDS: Cefepime HCl 2,000 MG in 0.9 % Sodium Chloride Mini Bag 100 ML IVPB SCH ×2 (08:11→19:50)
[2021-12-10] MEDS: Clotrimazole 1% CRM 15 GM TUBE TP SCH ×2 (08:12→19:52)
[2021-12-10] MEDS: Nystatin POWDER 30 GM BOTTLE TP SCH ×3 (08:12→19:51)
[2021-12-10] MEDS: Insulin DETEMIR 100 UNIT/ML X5UNITS SUBQ SCH (08:13)
[2021-12-10] MEDS: FentaNYL (PF) 1,000 MCG/100 ML IV.SOLN IVC SCH ×2 (09:55→15:33)
[2021-12-10 11:05] LABS: Magnesium 1.9 mg/dL (1.6-2.6); Phosphorous 4.7 mg/dL (2.7-4.5); Potassium 4.4 mEq/L (3.5-5.1)
[2021-12-10] MEDS ORDERED: Bumetanide 1 MG/4 ML VIAL IVP ONE (12:30)
[2021-12-10] MEDS: *HR* LORazepam 2 MG/ML VIAL IVP PRN (14:32)
[2021-12-10] MEDS: *HR* HYDROmorphone (PF) 1 MG/ML SYRINGE IVP PRN (15:08)
[2021-12-10 16:16] LABS: Calcium 9.1 mg/dL (8.6-10.3); Potassium 4.4 mEq/L (3.5-5.1)
[2021-12-10] MEDS: Argatroban 250 MG in 0.9 % Sodium Chloride 250 ML IVC SCH (17:01)
[2021-12-10 20:34] LABS: Potassium 4.2 mEq/L (3.5-5.1)
[2021-12-11] MEDS: Insulin LISPRO 300 UNITS/3 ML VIAL SUBQ SCH ×6 (00:16→20:51)
[2021-12-11] MEDS: Dexmedetomidine HCl 400 MCG/100 ML MLS IVC SCH ×2 (00:42→04:57)
[2021-12-11] MEDS: FentaNYL (PF) 1,000 MCG/100 ML IV.SOLN IVC SCH (02:12)
[2021-12-11 03:39] LABS: Hemoglobin 7.5 g/dL (11.5-15.4)
[2021-12-11 03:41] LABS: Hematocrit 23.3 % (35.3-44.9); Immature Platelets 15.9 % (1.1-6.1); Mean Corpuscular HGB Conc 32.2 g/dL (31.6-35.5); Mean Corpuscular Hemoglobin 34.4 pg (28.0-33.3); Mean Corpuscular Volume 106.9 fL (83.0-100.0); Mean Platelet Volume 14.7 fL (9.4-12.4); Nucleated Red Blood Cells 0.3 /100 WBC (0); Red Blood Count 2.18 M/mcL (3.82-4.97); Red Cell Distribution Width 20.4 % (11.5-14.5)
[2021-12-11 03:44] LABS: Platelet Count 94 K/mcL (140-400)
[2021-12-11] MEDS: Artificial Tears SOLN 15 ML BOTTLE BOTH EYES SCH ×5 (03:46→20:56)
[2021-12-11 04:00] LABS: Calcium 8.8 mg/dL (8.6-10.3); Potassium 4.1 mEq/L (3.5-5.1)
[2021-12-11] MEDS: Levalbuterol Neb 1.25 MG/3 ML IH SCH ×4 (04:15→20:12)
[2021-12-11 04:54] LABS: ABG Base Excess -14 mEq/L (-2 to 3); ABG HCO3 11 mEq/L (21-27); ABG Oxygen Saturation 91 % (95-98); ABG PCO2 24 mmHg (35-45); ABG PH 7.28 pH Units (7.32-7.45); ABG PO2 68 mmHg (85-104); ABG TCO2 12 mEq/L (20-26); Blood Gas Modality ASSIST CONTROL; Blood Gas VT 450 cc
[2021-12-11 05:13] LABS: Lymphocytes # 2.5 K/mcL (0.6-4.6); Monocytes # 1.1 K/mcL (0.0-1.3); Neutrophils # 5.4 K/mcL (1.6-8.9); Platelet Estimate Decreased (Normal)
[2021-12-11 05:14] LABS: Anisocytosis 2+ (Not Present)
[2021-12-11] MEDS: *HR* Metoprolol 5 MG/5 ML VIAL IVP SCH ×4 (05:14→23:28)
[2021-12-11] MEDS: Cefepime HCl 1,000 MG in 0.9 % Sodium Chloride 10 ML IVP SCH ×2 (05:14→17:49)
[2021-12-11] MEDS: Pantoprazole 40 MG VIAL IVP SCH ×2 (05:15→17:49)
[2021-12-11] MEDS: Norepinephrine 4 MG/254 ML IV.SOLN IVC SCH (05:33)
[2021-12-11] MEDS: D5% in Water 1,000 ML IVC SCH ×3 (05:33→20:58)
[2021-12-11] MEDS: MetroNIDAZOLE 500 MG/100 ML 500 MG/100 ML BAG IVPB SCH ×3 (08:46→23:28)
[2021-12-11] MEDS: Docusate Oral Soln 100 MG/10 ML UDC GTUBE SCH ×2 (08:47→20:52)
[2021-12-11] MEDS: Nystatin POWDER 30 GM BOTTLE TP SCH ×3 (08:48→20:57)
[2021-12-11] MEDS: Chlorhexidine Rinse 15 ML MOUTHWASH MM SCH ×2 (08:48→20:53)
[2021-12-11] MEDS: Clotrimazole 1% CRM 15 GM TUBE TP SCH ×2 (08:48→20:56)
[2021-12-11] MEDS: Insulin DETEMIR 100 UNIT/ML X5UNITS SUBQ SCH (08:50)
[2021-12-11] MEDS ORDERED: *HR* FentaNYL (PF) 100 MCG/2 ML VIAL IVP PRN (14:41)
[2021-12-11] MEDS ORDERED: *HR* LORazepam 2 MG/ML VIAL IVP PRN (14:42)
[2021-12-11] MEDS ORDERED: Scopolamine Patch 1.5 MG PATCH.TD72 TD ONE (15:15)
[2021-12-11] MEDS: Argatroban 250 MG in 0.9 % Sodium Chloride 250 ML IVC SCH (16:15)
[2021-12-11] MEDS: *HR* Dextrose 50 % in Water (Syg) 50 ML SYRINGE IVP PRN (20:08)
[2021-12-11] MEDS ORDERED: Atropine Sulfate 1% 40 DROP/2 ML BOTTLE SL PRN (20:19)
[2021-12-12] MEDS: Levalbuterol Neb 1.25 MG/3 ML IH SCH ×2 (03:16→08:22)
[2021-12-12] MEDS: *HR* Dextrose 50 % in Water (Syg) 50 ML SYRINGE IVP PRN ×3 (03:49→12:14)
[2021-12-12] MEDS: Artificial Tears SOLN 15 ML BOTTLE BOTH EYES SCH ×4 (04:00→14:42)
[2021-12-12 04:56] LABS: Hematocrit 24.2 % (35.3-44.9); Hemoglobin 7.8 g/dL (11.5-15.4); Immature Platelets 20.3 % (1.1-6.1); Mean Corpuscular HGB Conc 32.2 g/dL (31.6-35.5); Mean Corpuscular Hemoglobin 34.1 pg (28.0-33.3); Mean Corpuscular Volume 105.7 fL (83.0-100.0); Mean Platelet Volume 14.9 fL (9.4-12.4); Nucleated Red Blood Cells 0.4 /100 WBC (0); Platelet Count 141 K/mcL (140-400); Red Blood Count 2.29 M/mcL (3.82-4.97); Red Cell Distribution Width 20.2 % (11.5-14.5); White Blood Count 13.6 K/mcL (4.3-11.1)
[2021-12-12 05:04] LABS: Calcium 8.8 mg/dL (8.6-10.3); Potassium 4.3 mEq/L (3.5-5.1)
[2021-12-12] MEDS: Insulin LISPRO 300 UNITS/3 ML VIAL SUBQ SCH ×3 (05:49→11:47)
[2021-12-12] MEDS: Cefepime HCl 1,000 MG in 0.9 % Sodium Chloride 10 ML IVP SCH (05:58)
[2021-12-12] MEDS: *HR* Metoprolol 5 MG/5 ML VIAL IVP SCH ×2 (05:58→14:42)
[2021-12-12] MEDS: Pantoprazole 40 MG VIAL IVP SCH (05:59)
[2021-12-12] MEDS ORDERED: Doxycycline 100 MG in 0.9 % Sodium Chloride Mini Bag 100 ML IVPB SCH (06:00)
[2021-12-12 07:50] LABS: Lymphocytes # 2.2 K/mcL (0.6-4.6); Monocytes # 0.3 K/mcL (0.0-1.3); Neutrophils # 10.6 K/mcL (1.6-8.9)
[2021-12-12 07:51] LABS: Anisocytosis 1+ (Not Present); Platelet Estimate Decreased (Normal)
[2021-12-12] MEDS: MetroNIDAZOLE 500 MG/100 ML 500 MG/100 ML BAG IVPB SCH (07:53)
[2021-12-12] MEDS: Chlorhexidine Rinse 15 ML MOUTHWASH MM SCH ×2 (07:53→19:55)
[2021-12-12] MEDS: Docusate Oral Soln 100 MG/10 ML UDC GTUBE SCH (07:55)
[2021-12-12] MEDS: Nystatin POWDER 30 GM BOTTLE TP SCH ×3 (07:55→20:24)
[2021-12-12] MEDS: Insulin DETEMIR 100 UNIT/ML X5UNITS SUBQ SCH (07:55)
[2021-12-12] MEDS: Clotrimazole 1% CRM 15 GM TUBE TP SCH ×2 (07:56→20:25)
[2021-12-12] MEDS: Norepinephrine 4 MG/254 ML IV.SOLN IVC SCH ×2 (08:35→08:36)
[2021-12-12] MEDS ORDERED: Ipratropium/Albuterol Neb 3 ML IH PRN ×2 (12:19→13:05)
[2021-12-12] MEDS ORDERED: Artificial Tears SOLN 15 ML BOTTLE BOTH EYES PRN (13:05)
[2021-12-12] MEDS ORDERED: Atropine Sulfate 1% 40 DROP/2 ML BOTTLE SL PRN (13:05)
[2021-12-12] MEDS: *HR* FentaNYL (PF) 100 MCG/2 ML VIAL IVP PRN ×3 (15:45→22:57)
[2021-12-12] MEDS: *HR* LORazepam 2 MG/ML VIAL IVP PRN (19:08)
[2021-12-13] MEDS: *HR* LORazepam 2 MG/ML VIAL IVP PRN ×3 (00:28→10:14)
[2021-12-13] MEDS: *HR* FentaNYL (PF) 100 MCG/2 ML VIAL IVP PRN ×5 (02:05→10:50)
[2021-12-13 07:38] VITALS: BP 50/35; PULSE 82; TEMP 96; O2SAT 90
[2021-12-13] MEDS: Nystatin POWDER 30 GM BOTTLE TP SCH (08:06)
[2021-12-13] MEDS: Chlorhexidine Rinse 15 ML MOUTHWASH MM SCH (08:06)
[2021-12-13] MEDS: Clotrimazole 1% CRM 15 GM TUBE TP SCH (08:06)
== END 2021-12-13 11:24 | disposition expired | DRG 720 ==
LOC: 3ANU 17:44 → EMEROOARM 17:44 → SUATTDRO 22:45 → 3ANU 22:46 → ICNU 11-12 17:18 → 2NNU 11-30 18:09 → 3NENU 12-01 22:05 → 2NNU 12-05 14:49 → ICNU 12-06 14:29 → 2ANU 12-12 14:20
PROVIDERS: ADMIT Internal Medicine; ATTEND Student in an Organized Health Care Education/Training Program
PROC: ENDOBRF (2021-11-22 11:00)